=== PATIENT | female | born 1940 | race Caucasian/White ===

== ENCOUNTER 2024-04-17 09:55 | Inpatient (IN) | payer MEDICARE, SELFPAY ==
[2024-04-17] VITALS (8 sets, daily range): BP systolic 133–159; BP diastolic 74–89; PULSE 71–86; RESP 16–18; TEMP 36.6; O2SAT 93–98; BMI 18.4
--- NOTE | 2024-04-17 10:09 | CTR_ITS ---
PROCEDURE INFORMATION: Exam: CT Abdomen And Pelvis Without Contrast Exam date and time: 04/17/2024 11:27 AM Age: 83 years old Clinical indication: Abnormal findings; Abnormal lab test; Abnormal kidney function lab tests; Additional info: Renal failure, R/O obstructive uropathy TECHNIQUE: Imaging protocol: Computed tomography of the abdomen and pelvis without contrast. Radiation optimization: All CT scans at this facility use at least one of these dose optimization techniques: automated exposure control; mA and/or kV adjustment per patient size (includes targeted exams where dose is matched to clinical indication); or iterative reconstruction. COMPARISON: No relevant prior studies available. RADIATION DOSE METRICS: Total DLP (mGy-cm): 302.06 FINDINGS: Lungs: Mild bibasilar scarring and/or atelectasis. Diaphragm: Small to moderate-sized hiatal hernia. Liver: No suspicious hepatic masses. Gallbladder and biliary ducts: The gallbladder is unremarkable. No biliary ductal dilatation. Pancreas: The pancreas is unremarkable. Spleen: The spleen is unremarkable. Adrenal glands: 4.0 cm indeterminate mass at the right adrenal gland. 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 Kidneys and ureters: Kidneys are normal. No hydronephrosis or nephrolithiasis. Stomach and bowel: Nonobstructive bowel gas pattern. Appendix: No evidence of acute appendicitis. Intraperitoneal space: No significant free fluid in the abdomen or pelvis. Vasculature: Moderate calcific atheromatous disease of the abdominal aorta and its major branches. No abdominal aortic aneurysm. Lymph nodes: No distinct pathologically enlarged lymphadenopathy. Urinary bladder: Urinary bladder is within normal limits. Reproductive: Uterus is absent. Bones/joints: Multilevel spondylosis. No acute osseous findings. Soft tissues: Visualized superficial soft tissues are within normal limits. CT/CT abdomen pelvis wo con [id number] IMPRESSION: 1. No evidence of obstructive uropathy. 2. 4.0 cm indeterminate mass at the right adrenal gland. In a patient with no cancer history, consider resection. In a patient with cancer history, consider biopsy or PET-CT. (Reference: Tim) COMMENTS: Consistent with the [employer]'s Incidental Findings Committee white paper (J Am Lauren Radiol 2017): For any incidental adrenal lesion greater than or equal to 1 cm but less than or equal to 4 cm classified in this report as benign, likely benign, or containing fat (including classification as an adenoma or myelolipoma), no follow-up imaging is recommended per consensus recommendations based on imaging criteria. Further lab evaluation could be pursued if warranted based on clinical findings. REFERENCES: Tim KUHN et al. Management of Incidental Adrenal Masses: A White Paper of the ACR Incidental Findings Committee. J Am Lauren Radiol. 2017;14(8):8816-4586.
[2024-04-17 10:43] LABS: Basophils % 0.5 %; Eosinophils # 0.1 10^3/uL (0.0-0.8); Eosinophils % 1.1 %; Hematocrit 38.7 % (36-47); Lymphocytes # 1.6 10^3/uL (0.8-4.8); Lymphocytes % 20.5 %; Mean Corpuscular HGB Conc 32.3 g/dL (30-55); Mean Corpuscular Hemoglobin 28.2 pg (27-33); Mean Corpuscular Volume 87.2 fl (85-98); Mean Platelet Volume 9.1 fL (7.4-10.4); Monocytes # 0.4 10^3/uL (0.2-0.9); Monocytes % 5.4 %; Neutrophils # 5.46 10^3/uL (1.8-7.7); Neutrophils % 72.2 %; Nucleated Red Blood Cells % 0 %; Platelet Count 345 10^3/cmm (157-399); Red Blood Count 4.44 10^6/uL (3.85-5.65); Red Cell Distribution Width 13.9 % (12.1-15.1); White Blood Count 7.56 10^3/uL (3.29-11.43)
--- NOTE | 2024-04-17 10:55 | ED_ITS ---
HPI - General Adult 2 General: Chief complaint: General Medical Stated complaint: Dr. Arroyo sent over--for kidney failure Time Seen by Provider: 04/17/24 10:08 History of Present Illness: 83-year-old female with a history of hyp ertension, anxiety, COPD (quit smoking 2 years ago) who says she was recently started on metformin for newly diagnosed diabetes and since then apparently her renal function has gotten worse. It was checked today and her BUN was 60 and her creatinine was up to 3.8. She has no known renal failure. She says she feels fine. She has no decreased energy. No decreased urine output. No altered mental status. No focal motor deficits. She walks into the emergency room without any difficulty. No fevers. No abdominal pain. No flank pain. Review of Systems 2 Narrative: Constitutional symptoms: Negative except as documented in HPI. Skin symptoms: Negative except as documented in HPI. Eye symptoms: Negative except as documented in HPI. ENMT symptoms: Negative except as documented in HPI. Respiratory symptoms: Negative except as documented in HPI. Cardiovascular symptoms: Negative except as documented in HPI. Gastrointestinal symptoms: Negative except as documented in HPI. Genitourinary symptoms: Negative except as documented in HPI. Musculoskeletal symptoms: Negative except as documented in HPI. Neurologic symptoms: Negative except as documented in HPI. Psychiatric symptoms: Negative except as documented in HPI. Endocrine symptoms: Negative except as documented in HPI. Physical Exam 2 Narrative: EXAM NARRATIVE: General: Alert, no acute distress. Skin: Warm, dry. Head: Normocephalic, atraumatic. Neck: Supple, trachea midline. Eye: Extraocular movements are intact. Ears, nose, mouth and throat: mucosa moist. Cardiovascular: Regular, Normal peripheral perfusion. Respiratory: Lungs are clear to auscultation, respirations are non-labored, breath sounds are equal, Symmetrical chest wall expansion. Gastrointestinal: Soft, Nontender, Non distended Musculoskeletal: Normal ROM, no deformity. Neurological: Alert and oriented, No focal neurological deficit observed. Psychiatric: Cooperative, appropriate mood & affect. Course 2 Vital Signs: Vital signs: Vital Signs Temperature 97.8 F 04/17/24 10:30 Pulse Rate 71 04/17/24 12:29 Respiratory Rate 18 04/17/24 12:29 Blood Pressure 138/87 04/17/24 12:29 Pulse Oximetry 96 04/17/24 12:29 Oxygen Delivery Me thod Room Air 04/17/24 10:30 MDM - General Adult Medical Decision Making Medical decision making: Differential diagnosis including but not limited to and based on the above HPI, review of systems and physical exam: Patient with report of renal failure. Review of lab work paperwork sent from outside shows a BUN of 60 and a creatinine of 3.8. I am repeating lab work and adding a urinalysis. Orders placed to evaluate differential diagnosis based on the above differential, HPI and physical exam Lab Review: Laboratory results were reviewed and interpreted by myself the emergency room physician. Patient does have renal insufficiency. I have no comparison but this appears likely to be subacute. BUN and creatinine are 57 and 4.1. Potassium is not elevated which suggest perhaps not acute but magnesium and phosphorus are normal which would suggest that it has not been all that chronic. Patient does have a significant urinary tract infection I reviewed the patient's medical record. Reexamination: Patient remained stable. No increased work of breathing. No altered mental status. No pain. No focal motor deficits. CT of the abdomen pelvis without contrast: No obvious acute fractures. No obstructive uropathy. There is a an adrenal mass that may require further workup. This was reviewed and interpreted by myself the emergency room physician. I also reviewed the radiology report. Consultation: I spoke with placement officer on-call, Dr. Mulligan, who recommends fluids and antibiotics. Consultation: I spoke with the hospitalist on-call Dr. Douglas who recommends admission. We will place on observation for now. Assessment and plan: Renal failure Urinary tract infection Dehydration -IV Rocephin, 1.5 L normal saline bolus ? Fluids, antibiotics and ultrasound as per nephrology. They will follow -I discussed the patient with the hospitalist on-call who is admitting the patient. - Discussed findings and plan with patient. Answered any questions. - All laboratory values were reviewed and interpreted personally by myself, the ER physician - All imaging was reviewed and interpreted personally by myself, the ER physician. - Evaluation and treatment of this problem were appropriate in the emergency setting -I spent a total of >35 minutes of critical care time managing the patient, independent of any other practitioner. -The time involved in the performance of separately reportable procedures was not counted towards critical care time. Lab Data 04/17/24 10:26 04/17/24 10:26 Radiology Impressions Abdomen/Pelvis CT 04/17/24 10:09 IMPRESSION: 1. No evidence of obstructive uropathy. 2. 4.0 cm indeterminate mass at the right adrenal gland. In a patient with no cancer history, consider resection. In a patient with cancer history, consider biopsy or PET-CT. (Reference: Tim) COMMENTS: Consistent with the [employer]'s Incidental Findings Committee white paper (J Am Lauren Radiol 2017): For any incidental adrenal lesion greater than or equal to 1 cm but less than or equal to 4 cm classified in this report as benign, likely benign, or containing fat (including classification as an adenoma or myelolipoma), no follow-up imaging is recommended per consensus recommendations based on imaging criteria. Further lab evaluation could be pursued if warranted based on clinical findings. REFERENCES: Tim KUHN, et al. Management of Incidental Adrenal Masses: A White Paper of the ACR Incidental Findings Committee. J Am Lauren Radiol. 2017;14(8):4401-3320. Laboratory Results WBC 7.56 10^3/uL (3.29-11.43) 04/17/24 10:26 RBC 4.44 10^6/uL (3.85-5.65) 04/17/24 10:26 Hgb 12.50 g/dL (11.27-16.99) 04/17/24 10:26 Hct 38.7 % (36-47) 04/17/24 10:26 MCV 87.2 fl (85-98) 04/17/24 10:26 MCH 28.2 pg (27-33) 04/17/24 10:26 MCHC 32.3 g/dL (30-55) 04/17/24 10:26 RDW 13.9 % (12.1-15.1) 04/17/24 10:26 Plt Count 345 10^3/cmm (157-399) 04/17/24 10:26 MPV 9.1 fL (7.4-10.4) 04/17/24 10:26 Neut % (Auto) 72.2 % 04/17/24 10:26 Lymph % (Auto) 20.5 % 04/17/24 10:26 [place] % (Auto) 5.4 % 04/17/24 10:26 Eos % (Auto) 1.1 % 04/17/24 10:26 Baso % (Auto) 0.5 % 04/17/24 10:26 Neut # (Auto) 5.46 10^3/uL (1.8-7.7) 04/17/24 10:26 Lymph # (Auto) 1.6 10^3/uL (0.8-4.8) 04/17/24 10:26 [place] # (Auto) 0.4 10^3/uL (0.2-0.9) 04/17/24 10:26 Eos # (Auto) 0.1 10^3/uL (0.0-0.8) 04/17/24 10:26 Baso # (Auto) 0.0 10^3/uL (0.0-0.1) 04/17/24 10:26 Nucleated RBC % (auto) 0 % 04/17/24 10:26 Nucleated RBCs # 0.0 /100WBC 04/17/24 10:26 Sodium 134 mmol/L (136-145) L 04/17/24 10:26 Potassium 4.0 mmol/L (3.5-5.1) 04/17/24 10:26 Chloride 99 mmol/L (98-107) 04/17/24 10:26 Carbon Dioxide 18 mmol/L (22-29) L 04/17/24 10:26 Anion Gap 21.0 (5-19) H 04/17/24 10:26 BUN 57 mg/dL (8-23) H 04/17/24 10:26 Creatinine 4.1 mg/dL (0.5-0.9) H 04/17/24 10:26 GFR Calculation Not Reportable 04/17/24 10:26 Glucose 173 mg/dL (65-115) H 04/17/24 10:26 Calculated Osmolality 298 mOsm/kg (285-295) H 04/17/24 10:26 Calcium 9.5 mg/dL (8.5-10.5) 04/17/24 10:26 Phosphorus 4.2 mg/dL (2.5-4.5) 04/17/24 10:26 Magnesium 2.3 mg/dL (1.7-2.3) 04/17/24 10:26 Total Bilirubin 0.4 mg/dL (0.15-1.2) 04/17/24 10:26 AST 86 U/L (0-32) H 04/17/24 10:26 ALT 122 U/L (0-33) H 04/17/24 10:26 Alkaline Phosphatase 231 U/L (35-105) H 04/17/24 10:26 Total Protein 8.6 g/dL (6.6-8.7) 04/17/24 10:26 Albumin 4.0 g/dL (3.5-5.2) 04/17/24 10:26 Globulin 4.6 g/dL (1.3-4.6) 04/17/24 10:26 Urine Color Yellow (Yellow) 04/17/24 10:54 Urine Appearance Cloudy (CLEAR) A 04/17/24 10:54 Urine pH 6 (5-7) 04/17/24 10:54 Ur Specific [place] 1.010 (1.005-1.030) 04/17/24 10:54 Urine Protein 1+ (Negative) H 04/17/24 10:54 Urine Glucose (UA) 1+ (Normal) H 04/17/24 10:54 Urine Ketones 1+ (Negative) H 04/17/24 10:54 Urine Blood 2+ (Negative) H 04/17/24 10:54 Urine Nitrate Negative (Negative) 04/17/24 10:54 Urine Bilirubin Neg (Negative) 04/17/24 10:54 Urine Urobilinogen Norm mg/dL (Negative) 04/17/24 10:54 Ur Leukocyte Esterase 2+ (Negative) H 04/17/24 10:54 Urine RBC 5-10 /hpf (0-2) H 04/17/24 10:54 Urine WBC >100 /hpf (0-5) 04/17/24 10:54 Ur Squamous Epith Cells 10-15 /hpf (0-5) H 04/17/24 10:54 Ur Transition Epith Cell 0-4 /hpf 04/17/24 10:54 Amorphous Sediment Trace /hpf 04/17/24 10:54 Urine Bacteria 1+ /hpf (NONE) H 04/17/24 10:54 Fine Granular Casts 0-4 /lpf H 04/17/24 10:54 Urine Mucus None /hpf 04/17/24 10:54 Ur Oval Fat Bodies 2+ /hpf 04/17/24 10:54 All radiology interpretation(s) finalized by discharge Discharge Plan Discharge Patient Disposition: Placed in Observation Clinical Impression: Urinary tract infection Renal failure Qualifiers: Renal failure chronicity: unspecified chronicity Qualified Code(s): N19 - Unspecified kidney failure Coding Level of Care Code ED Laundry Worker for Jimbo No
[2024-04-17 11:00] LABS: Alanine Aminotransferase 122 U/L (0-33); Alkaline Phosphatase 231 U/L (35-105); Aspartate Amino Transferase 86 U/L (0-32); Blood Urea Nitrogen 57 mg/dL (8-23); Calcium 9.5 mg/dL (8.5-10.5); Carbon Dioxide 18 mmol/L (22-29); Chloride 99 mmol/L (98-107); Globulin 4.6 g/dL (1.3-4.6); Glucose 173 mg/dL (65-115); Magnesium 2.3 mg/dL (1.7-2.3); Osmolality Calculated 298 mOsm/kg (285-295); Phosphorus 4.2 mg/dL (2.5-4.5); Sodium 134 mmol/L (136-145); Total Bilirubin 0.4 mg/dL (0.15-1.2); Total Protein 8.6 g/dL (6.6-8.7)
[2024-04-17 11:25] LABS: Add Urine Microscopic? YES; Bilirubin Urine Neg (Negative); Blood Urine 2+ (Negative); Glucose Urine UA 1+ (Normal); Ketones Urine 1+ (Negative); Leukocyte Esterase Urine 2+ (Negative); Nitrate Urine Negative (Negative); Protein Urine 1+ (Negative); Urine Appearance Cloudy (CLEAR); Urine Color Yellow (Yellow); Urobilinogen Urine Norm (Negative); pH Urine 6 (5-7)
[2024-04-17 11:30] LABS: WBC Urine >100 /hpf (0-5)
[2024-04-17 11:31] LABS: Add Urine Culture? Yes; Amorphous Sediment Urine TRACE /hpf; Bacteria Urine 1+ /hpf; Fine Granular Casts Urine 0-4 /lpf; Oval Fat Bodies Urine 2+ /hpf; Transitional Epi Cells Urine 0-4 /hpf
--- NOTE | 2024-04-17 12:29 | PM.HP ---
Providers/Chief Complaint Admitting Physician: Elodia Douglas MD Primary Care Provider: Isha Aguila Chief Complaint: Dr. Arroyo sent over--for kidney failure History of Present Illness Ai Jackson is a 83 year old female who presented to the emergency room due to abnormal laboratory studies. She was seen yesterday at her primary care provider's office for follow-up check. Some time recently she had been started on metformin due to elevation in blood sugar. Does not have a formal diagnosis of diabetes but laboratory studies have been noted to be abnormal. She did take metformin as prescribed initially and subsequently developed diarrhea. She then quit taking the metformin due to the frequency of diarrhea which was unbelievable . She stopped taking metformin more than a week ago. Blood work was rechecked yesterday and creatinine was noted to be 3.8. Mrs. Jackson has a history of lung cancer, specific type unknown but she is being managed with immunotherapy and follows with Dr. Melara in [place]. Original diagnosis was 3 years ago. The last time that she had lab work done they told her that her kidneys were not functioning completely normal but she nor family present have the exact numerical values. Lab work done at the clinic yesterday was significantly abnormal however and Ms. Jackson was sent to the emergency room. Here she had BUN and creatinine of 57/4.1. Potassium was 4.0. Of note blood sugars were 173. In talking with her she does have urinary frequency and incontinence, urgency. She denies any flank pain. She has not had any fevers, nausea, abdominal pain. Again she only had diarrhea after taking metformin. Denies dysuria. Urinalysis came back with indications of infection. Given apparent new renal failure and UTI she received Rocephin and some IV fluids and request was made for admission. CT imaging did not show any evidence of obstructive uropathy though an adrenal mass was noted. In talking with family they do not believe that this is a new finding but do not have prior details. Nephrology requested a renal ultrasound and this did actually show bilateral hydronephrosis and a distended bladder suggesting an obstructive uropathy. Home medications include lorazepam, amlodipine and as needed albuterol and the recently discontinued metformin. History is obtained from Mrs. Jackson who lives alone as well as family member present in the room. Review of Systems General: Reports: Other (ROS as per HPI or as otherwise noted here) Const: Reports: change in appetite and change in weight (Weight loss of maybe 4 pounds); Denies: fever(s) Card: Denies: chest pain or edema Resp: Reports: dyspnea, productive cough (Phlegm) and other (Never required oxygen); Denies: pain on inspiration or hemoptysis : Denies: hematuria Psych: Reports: anxiety Endo: Denies: polydipsia Medications/Allergies Home Medications Medication Instructions Recorded Confirmed Last Taken Type albuterol sulfate 90 mcg/actuation 2 puff inhalation QID PRN Wheezing 04/17/24 04/17/24 Unknown History aerosol inhaler amlodipine 10 mg tablet 10 mg PO DAILY 04/17/24 04/17/24 04/17/24 History lorazepam 0.5 mg tablet 0.5 mg PO BID PRN SEVERE AGITATION 04/17/24 04/17/24 04/17/24 History Allergies Allergy/AdvReac Type Severity Reaction Status Date / Time No Known Allergies Allergy Verified 04/17/24 10:38 PFSH Acute PFSH: Medical History (Updated 04/17/24 @ 16:41 by Elodia Douglas MD) Adrenal mass Cystocele Anxiety Hypertension COPD (chronic obstructive pulmonary disease) History of lung cancer Type unknown, follows with Dr Cano in [place], on immunotherapy Surgical History (Updated 04/17/24 @ 16:26 by Elodia Douglas MD) History of hysterectomy Social History (Updated 04/17/24 @ 16:26 by Elodia Douglas MD) Smoking and tobacco/nicotine status: former use of tobacco/nicotine Lives independently: Yes Household members: none and other Details: family checks on her Vitals/I&O/Wt Last Vital Signs Temp 97.8 F 04/17/24 10:30 Pulse 83 04/17/24 11:38 Resp 16 04/17/24 11:38 BP 150/89 04/17/24 11:38 Pulse Ox 98 04/17/24 11:38 O2 Del Method Room Air 04/17/24 10:30 Weight last 48 hrs Weight 50.349 kg Physical Exam Narrative: Patient is awake and alert. Able to provide history. Evidence of chronic sun exposure most notable on the face. She is quite spry. Normocephalic. Extraocular movements are intact. Lungs with occasional wheeze and nonproductive cough during examination noted but no accessory muscle use. Cardiovascular exam reveals a regular rate and rhythm. Abdomen is soft, nontender, no flank pain. Extremities no pitting edema. No abnormal movements. Data 04/17/24 10:26 04/17/24 10:26 Other Labs: Radiology Impressions Abdomen/Pelvis CT 04/17/24 10:09 IMPRESSION: 1. No evidence of obstructive uropathy. 2. 4.0 cm indeterminate mass at the right adrenal gland. In a patient with no cancer history, consider resection. In a patient with cancer history, consider biopsy or PET-CT. (Reference: Tim) COMMENTS: Consistent with the [employer]'s Incidental Findings Committee white paper (J Am Lauren Radiol 2017): For any incidental adrenal lesion greater than or equal to 1 cm but less than or equal to 4 cm classified in this report as benign, likely benign, or containing fat (including classification as an adenoma or myelolipoma), no follow-up imaging is recommended per consensus recommendations based on imaging criteria. Further lab evaluation could be pursued if warranted based on clinical findings. REFERENCES: Tim KUHN, et al. Management of Incidental Adrenal Masses: A White Paper of the ACR Incidental Findings Committee. J Am Lauren Radiol. 2017;14(8):9797-2129. Renal Ultrasound 04/17/24 12:58 IMPRESSION: 1. Bilateral hydronephrosis and moderate distention of urinary bladder. The possibility of bladder outlet obstruction should be considered. 2. The kidneys are otherwise well preserved. No solid or cystic renal mass. No obvious shadowing calculi noted. Laboratory Results WBC 7.56 10^3/uL (3.29-11.43) 04/17/24 10:26 RBC 4.44 10^6/uL (3.85-5.65) 04/17/24 10:26 Hgb 12.50 g/dL (11.27-16.99) 04/17/24 10:26 Hct 38.7 % (36-47) 04/17/24 10:26 MCV 87.2 fl (85-98) 04/17/24 10:26 MCH 28.2 pg (27-33) 04/17/24 10: MCHC 32.3 g/dL (30-55) 04/17/24 10:26 RDW 13.9 % (12.1-15.1) 04/17/24 10:26 Plt Count 345 10^3/cmm (157-399) 04/17/24 10:26 MPV 9.1 fL (7.4-10.4) 04/17/24 10:26 Neut % (Auto) 72.2 % 04/17/24 10:26 Lymph % (Auto) 20.5 % 04/17/24 10:26 [place] % (Auto) 5.4 % 04/17/24 10:26 Eos % (Auto) 1.1 % 04/17/24 10:26 Baso % (Auto) 0.5 % 04/17/24 10:26 Neut # (Auto) 5.46 10^3/uL (1.8-7.7) 04/17/24 10:26 Lymph # (Auto) 1.6 10^3/uL (0.8-4.8) 04/17/24 10:26 [place] # (Auto) 0.4 10^3/uL (0.2-0.9) 04/17/24 10:26 Eos # (Auto) 0.1 10^3/uL (0.0-0.8) 04/17/24 10:26 Baso # (Auto) 0.0 10^3/uL (0.0-0.1) 04/17/24 10:26 Nucleated RBC % (auto) 0 % 04/17/24 10:26 Nucleated RBCs # 0.0 /100WBC 04/17/24 10:26 Sodium 134 mmol/L (136-145) L 04/17/24 10:26 Potassium 4.0 mmol/L (3.5-5.1) 04/17/24 10:26 Chloride 99 mmol/L (98-107) 04/17/24 10:26 Carbon Dioxide 18 mmol/L (22-29) L 04/17/24 10:26 Anion Gap 21.0 (5-19) H 04/17/24 10:26 BUN 57 mg/dL (8-23) H 04/17/24 10:26 Creatinine 4.1 mg/dL (0.5-0.9) H 04/17/24 10:26 GFR Calculation Not Reportable 04/17/24 10:26 Glucose 173 mg/dL (65-115) H 04/17/24 10:26 Calculated Osmolality 298 mOsm/kg (285-295) H 04/17/24 10:26 Calcium 9.5 mg/dL (8.5-10.5) 04/17/24 10:26 Phosphorus 4.2 mg/dL (2.5-4.5) 04/17/24 10:26 Magnesium 2.3 mg/dL (1.7-2.3) 04/17/24 10:26 Total Bilirubin 0.4 mg/dL (0.15-1.2) 04/17/24 10:26 AST 86 U/L (0-32) H 04/17/24 10:26 ALT 122 U/L (0-33) H 04/17/24 10:26 Alkaline Phosphatase 231 U/L (35-105) H 04/17/24 10:26 Total Protein 8.6 g/dL (6.6-8.7) 04/17/24 10: Albumin 4.0 g/dL (3.5-5.2) 04/17/24 10: Globulin 4.6 g/dL (1.3-4.6) 04/17/24 10:26 Urine Color Yellow (Yellow) 04/17/24 10:54 Urine Appearance Cloudy (CLEAR) A 04/17/24 10:54 Urine pH 6 (5-7) 04/17/24 10:54 Ur Specific [place] 1.010 (1.005-1.030) 04/17/24 10:54 Urine Protein 1+ (Negative) H 04/17/24 10:54 Urine Glucose (UA) 1+ (Normal) H 04/17/24 10:54 Urine Ketones 1+ (Negative) H 04/17/24 10:54 Urine Blood 2+ (Negative) H 04/17/24 10:54 Urine Nitrate Negative (Negative) 04/17/24 10:54 Urine Bilirubin Neg (Negative) 04/17/24 10:54 Urine Urobilinogen Norm mg/dL (Negative) 04/17/24 10:54 Ur Leukocyte Esterase 2+ (Negative) H 04/17/24 10:54 Urine RBC 5-10 /hpf (0-2) H 04/17/24 10:54 Urine WBC >100 /hpf (0-5) 04/17/24 10:54 Ur Squamous Epith Cells 10-15 /hpf (0-5) H 04/17/24 10:54 Ur Transition Epith Cell 0-4 /hpf 04/17/24 10:54 Amorphous Sediment Trace /hpf 04/17/24 10:54 Urine Bacteria 1+ /hpf (NONE) H 04/17/24 10:54 Fine Granular Casts 0-4 /lpf H 04/17/24 10:54 Urine Mucus None /hpf 04/17/24 10:54 Ur Oval Fat Bodies 2+ /hpf 04/17/24 10:54 A&P Assessment and plan (1) Renal failure: Currently looks to be postobstructive based on hydronephrosis and bladder dilatation along with urinary tract infection. She describes symptoms of what sounds like overflow incontinence for some time. Potential component of prerenal given GI losses when on metformin but quit taking it more than a week ago and the diarrhea has since resolved. We do have indication that her last labs done through oncology in [place] started to show some decline in overall renal function. Does have a little bit of a metabolic acidosis associated but potassium is normal as is phosphorus. (2) Bilateral hydronephrosis: Noted on renal ultrasound (3) Urinary obstruction: Contributing to above and below (4) Urinary tract infection: Present on admission, organism unknown (5) Cystocele: Present since she had hysterectomy many years ago. Not currently extruding. Never had surgical intervention and did not tolerate pessary. (6) Elevated blood sugar: Recent new finding for which she was started on metformin. Does not as of yet have a diagnosis of diabetes. Has not been on any form of steroid treatment that she is aware of that might account for hyperglycemia. (7) History of lung cancer: Followed with Dr. Melara in [place] and is currently on immunotherapy which she gets every 4 weeks IV. Specific type of lung cancer and treatment not known but she is in year 3 of management. (8) COPD (chronic obstructive pulmonary disease): On as needed albuterol, has a bit of a cough currently but respiratory symptoms otherwise not changed from baseline (9) Hypertension: Primary hypertension, chronically on amlodipine (10) Adrenal mass: 4 cm on today's imaging, likely not new according to family though they do not have details, discussed this finding with patient and them (11) Anxiety: Chronically on as needed lorazepam which she will often take twice a day Plan Mild elevation in transaminases and alkaline phosphatase, may be related to Immunotherapy or other medications, does not appear volume overloaded nor does she complain of acute GI symptoms, impact from cancer a consideration though nothing obvious noted on noncontrasted imaging today Observation admission for now Continue IV fluids Will place Cox catheter Discussed with patient and her family that she very well may end up needing to go home with Cox catheter with outpatient follow-up to urology depending on clinical course We also discussed possibility of adding an alpha-brady such as tamsulosin but at this point in time we will hold off on initiating given potential risk of medication such as dizziness or syncope Monitor urine output closely Nephrology has been consulted to see Continue Rocephin Follow-up pending urine cultures Monitor for need to address cystocele Consistent carbohydrate diet for elevation in blood sugar, recommend follow-up with primary care provider. will check blood sugars while here and give insulin if needed Asked patient to make sure her oncologist knows about urine infection and acute renal failure before next dose of immunotherapy, will try to send to Dr. Melara Recommend follow-up with primary care provider/Dr. Watson regarding adrenal mass given that she likely has had PET scans, other staging examinations previously that this adrenal mass could be compared to Continue albuterol if needed for breathing Continue amlodipine for blood pressure Continue lorazepam for anxiety VTE prophylaxis: subcu heparin GI Prophylaxis: not currently indicated Antibiotics: Rocephin Pending studies: urine culture Telemetry: not currently indicated Cox: ordered secondary to will appears to be obstructive uropathy and acute renal failure Line(s): peripheral IVs Disposition plan: Home with outpatient follow up to primary care provider, potentially urology and/or gynecology and her oncologist Dr. Melara anticipated. Currently expect she will likely go home with Cox catheter and will need instruction on how to use this and care for it at home. Also anticipate oral antibiotics at discharge and follow-up laboratory studies given renal dysfunction. Code Status: Full Code Supportive care otherwise Findings, concerns and plans were discussed with patient and Family in the room and they were given an opportunity to ask questions Attestations Medical Necessity Statement*: Anticipated stay less than two midnights in this 88-year-old who was incidentally found to have evidence of renal failure as described. Also has urinary tract infection. Currently renal failure appears to be postobstructive in nature based on hydronephrosis and distended bladder and symptoms describing incontinence particularly in someone with a known cystocele that has not been repaired. It is not actively protruding at the moment. May be a component of prerenal from GI losses related to recent trial of metformin but would have expected that to have resolved or be closer to resolving by now. She does not feel acutely ill. Currently on IV fluids and IV antibiotics with plan to follow-up laboratory studies and clinical response to treatment before determining further plans of care after tomorrow. Diagnoses Renal failure N19 Bilateral hydronephrosis N13.30 Urinary obstruction N13.9 Urinary tract infection N39.0 Cystocele Elevated blood sugar R73.9 History of lung cancer Z85.118 COPD (chronic obstructive pulmonary disease) J44.9 Hypertension I10 Adrenal mass E27.8 Anxiety F41.9
[2024-04-17] MEDS: cefTRIAXone 1,000 MG in sodium chloride 0.9% (plus) 50 ML 100 MG IV (12:35)
[2024-04-17] MEDS: sodium chloride 0.9% 500 ML 999 ML IV (12:37)
[2024-04-17] MEDS: sodium chloride 0.9% 1,000 ML 999 ML IV (12:39)
--- NOTE | 2024-04-17 12:58 | US_ITS ---
WS: [id number] Exam: US renal BI* [id number] Date/Time of Exam: 04/17/2024 1:24 PM Reason For Exam: renal failure There is moderate LEFT hydronephrosis and mild to moderate RIGHT hydronephrosis. There is also disten tion of the urinary bladder. Bladder outlet obstruction should be considered. No solid or cystic bonilla l mass was noted. The RIGHT kidney measures 11 x 4.6 x 5.3 cm. The LEFT kidney measures 10.9 x 5.2 x 4.6 cm. The renal cortex measures about 2.2 cm bilaterally. US/US renal BI* [id number] IMPRESSION: 1. Bilateral hydronephrosis and moderate distention of urinary bladder. The pos sibility of bladder outlet obstruction should be considered. 2. The kidneys are otherwise well preserved. No solid or cystic renal mass. No obvious shadowing calculi noted.
--- NOTE | 2024-04-17 13:17 | PC.PHAR ---
PT HAS ESCITALOPRAM 5MG ONCE DAILY-LAST FILL 90D-PT STOPPED TAKING SO I DID NOT ADD TO CURRENT MED LIST
[2024-04-17] MEDS: heparin 5,000 unit/mL INJ 1 mL 5000 UNIT SUBCUT (16:23)
[2024-04-17] MEDS: sodium chloride 0.9% 1,000 ML 100 ML IV (16:23)
[2024-04-17 16:41] LABS: Glucose Point of Care 182 mg/dL (70-110)
[2024-04-17 20:37] LABS: Glucose Point of Care 264 mg/dL (70-110)
--- NOTE | 2024-04-17 21:02 | PM.CONSULT ---
Providers/Reason For Consult Consulting Physician/Specialty*: fide/Nephrology Reason for Consult*: JOE Attending Physician: Elodia Douglas MD History of Present Illness History of Present Illness Ai Jackson is a 83 year old female Patient is 84-year-old female with past medical history of COPD, hypertension, history of right renal mass, history of lung cancer was sent to the emergency department due to abnormal labs. Patient was recently started on metformin due to diarrhea. New diagnosis of diabetes. But patient had some GI symptoms and had stopped metformin about a week ago. Lab data in the PCP office showed creatinine of 3.8. Renal ultrasound has showed bilateral hydronephrosis and distended bladder. Creatinine was 4.1. Cox catheter was placed. Review of Systems Narrative: Other review of systems negative Medications/Allergies Home Medications Medication Instructions Recorded Confirmed Last Taken Type albuterol sulfate 90 mcg/actuation 2 puff inhalation QID PRN Wheezing 04/17/24 04/17/24 Unknown History aerosol inhaler amlodipine 10 mg tablet 10 mg PO DAILY 04/17/24 04/17/24 04/17/24 History lorazepam 0.5 mg tablet 0.5 mg PO BID PRN SEVERE AGITATION 04/17/24 04/17/24 04/17/24 History Allergies Allergy/AdvReac Type Severity Reaction Status Date / Time No Known Allergies Allergy Verified 04/17/24 10:38 Current Medications Generic Name Dose Route Start Last Admin Trade Name Freq PRN Reason Stop Dose Admin Heparin Sodium (Porcine) 5,000 unit 04/17/24 16:00 04/17/24 16:23 Heparin 5,000 Unit/Ml Inj 1 Ml SUBCUT 5,000 unit Q12H DARIA Administration Sodium Chloride 1,000 mls @ 100 mls/hr 04/17/24 16:00 04/17/24 16:23 Sodium Chloride 0.9% IV 100 mls/hr .Q10H DARIA Administration Insulin Human Lispro 0 unit 04/17/24 18:00 04/17/24 18:06 Insulin Lispro 100 Unit/1 Ml SUBCUT Not Given TIDWM DARIA Protocol PFSH Acute PFSH: Medical History (Updated 04/18/24 @ 05:28 by Alyssa Mulligan MD) Adrenal mass Cystocele Anxiety Hypertension COPD (chronic obstructive pulmonary disease) History of lung cancer Type unknown, follows with Dr Cano in [place], on immunotherapy Surgical History (Updated 04/17/24 @ 16:26 by Elodia Douglas MD) History of hysterectomy Social History (Updated 04/17/24 @ 16:26 by Elodia Douglas MD) Smoking and tobacco/nicotine status: former use of tobacco/nicotine Lives independently: Yes Household members: none and other Details: family checks on her Vitals/I&O/Wt Last Vital Signs Temp 97.8 F 04/17/24 19:38 Pulse 85 04/17/24 19:38 Resp 16 04/17/24 19:38 BP 133/75 04/17/24 19:38 Pulse Ox 93 04/17/24 19:38 O2 Del Method Room Air 04/17/24 17:23 04/17/24 04/17/24 04/17/24 06:59 14:59 22:59 Intake Total 1550 / 1550 Balance 1550 / 1550 Weight last 48 hrs Weight 50.349 kg Physical Exam Narrative: Awake, alert, no distress HEENT S1-S2 regular rate and rhythm per report Lungs clear per report No pedal edema Urinary Catheter Management: Cox: Cath Placed During This Visit: yes Reason for Continuing Indwelling Catheter: Other Urinary Catheter Date of Insertion: 04/17/24 Urinary Catheter Time of Insertion: 16:41 Data 04/17/24 10:26 04/17/24 21:20 A&P Assessment and plan (1) JOE (acute kidney injury): 1. Acute kidney injury: Baseline creatinine not available, creatinine on presentation was 4.1, in the setting of obstructive uropathy and prerenal state. Continue IV fluids and continue to monitor, Cox catheter placed. Avoid nephrotoxic agents and IV contrast studies. No indication for dialysis. Will check serologies. 2. Metabolic acidosis: Mild, monitor for now 3. History of hypertension, on amlodipine, can resume 4. History of diabetes, metformin on hold Patient evaluated recent admission. Time spent 40 minutes. Coding Level of Care Code Acute Code for [facility] Fwd Diagnoses JOE (acute kidney injury) N17.9
[2024-04-17] MEDS: insulin lispro 100 unit/1 mL SUBCUT (21:31)
[2024-04-17 21:47] LABS: Anion Gap 17.9 (5-19); Blood Urea Nitrogen 55 mg/dL (8-23); Calcium 8.6 mg/dL (8.5-10.5); Carbon Dioxide 17 mmol/L (22-29); Chloride 106 mmol/L (98-107); Creatinine Clr Calc Pharmacy 9.7915; Glucose 237 mg/dL (65-115); Osmolality Calculated 307 mOsm/kg (285-295); Potassium 3.9 mmol/L (3.5-5.1); Sodium 137 mmol/L (136-145)
[2024-04-18] VITALS (10 sets, daily range): BP systolic 134–145; BP diastolic 66–76; PULSE 72–89; RESP 16–18; TEMP 36.6–37.1; O2SAT 91–96
[2024-04-18] MEDS: sodium chloride 0.9% 1,000 ML 100 ML IV (02:26)
[2024-04-18] MEDS: heparin 5,000 unit/mL INJ 1 mL 5000 UNIT SUBCUT ×2 (05:12→17:50)
[2024-04-18 05:51] LABS: Basophils % 0.5 %; Eosinophils % 0.6 %; Lymphocytes # 1.5 10^3/uL (0.8-4.8); Mean Corpuscular HGB Conc 32.4 g/dL (30-55); Mean Corpuscular Hemoglobin 27.7 pg (27-33); Mean Corpuscular Volume 85.6 fl (85-98); Mean Platelet Volume 9.3 fL (7.4-10.4); Monocytes # 0.4 10^3/uL (0.2-0.9); Monocytes % 7.1 %; Neutrophils # 4.22 10^3/uL (1.8-7.7); Neutrophils % 67.6 %; Nucleated Red Blood Cells % 0 %; Platelet Count 317 10^3/cmm (157-399); Red Blood Count 3.97 10^6/uL (3.85-5.65); Red Cell Distribution Width 13.9 % (12.1-15.1); White Blood Count 6.24 10^3/uL (3.29-11.43)
[2024-04-18 06:17] LABS: Alanine Aminotransferase 93 U/L (0-33); Albumin Level 3.5 g/dL (3.5-5.2); Alkaline Phosphatase 193 U/L (35-105); Anion Gap 17.6 (5-19); Aspartate Amino Transferase 59 U/L (0-32); Blood Urea Nitrogen 51 mg/dL (8-23); Calcium 8.6 mg/dL (8.5-10.5); Carbon Dioxide 16 mmol/L (22-29); Chloride 109 mmol/L (98-107); Creatinine Clr Calc Pharmacy 10.4317; Globulin 3.7 g/dL (1.3-4.6); Glucose 91 mg/dL (65-115); Osmolality Calculated 301 mOsm/kg (285-295); Phosphorus 4.2 mg/dL (2.5-4.5); Potassium 3.6 mmol/L (3.5-5.1); Sodium 139 mmol/L (136-145); Total Bilirubin 0.3 mg/dL (0.15-1.2); Total Protein 7.2 g/dL (6.6-8.7)
[2024-04-18 06:31] LABS: Glucose Point of Care 90 mg/dL (70-110)
[2024-04-18] MEDS: amlodipine 10 mg Tablet PO (08:36)
[2024-04-18] MEDS: LORazepam 0.5 mg Tablet PO ×2 (08:37→22:26)
--- NOTE | 2024-04-18 09:05 | P.PN_ITS ---
Subjective 2 Subjective: doing well Medications: Reviewed: Yes Vitals/I&O/Wt Last Vital Signs Temp 98.4 F 04/18/24 07:01 Pulse 80 04/18/24 08:15 Resp 16 04/18/24 08:15 BP 135/76 04/18/24 07:01 Pulse Ox 93 04/18/24 08:15 O2 Del Method Room Air 04/18/24 08:15 04/17/24 04/18/24 04/18/24 22:59 06:59 14:59 Intake Total 2029 1480 / 3510 Output Total 1650 / 1650 Balance 2029 -170 / 1860 Weight last 48 hrs Weight 55.423 kg Weight 50.349 kg Physical Exam 2 Narrative: Awake, alert, no distress HEENT S1-S2 regular rate and rhythm per report Lungs clear per report No pedal edema Urinary Catheter Management: Cox: Cath Placed During This Visit: yes Reason for Continuing Indwelling Catheter: Other Urinary Catheter Date of Insertion: 04/17/24 Urinary Catheter Time of Insertion: 16:41 Data 04/18/24 05:17 04/18/24 05:17 A&P Assessment and plan (1) JOE (acute kidney injury): 1. Acute kidney injury: Baseline creatinine not available, creatinine on presentation was 4.1, in the setting of obstructive uropathy and prerenal state. Continue IV fluids and continue to monitor, Cox catheter placed. Avoid nephrotoxic agents and IV contrast studies. No indication for dialysis. Will check serologies. - Cr better today , switch IVFs to bicarbonate drip 2. Metabolic acidosis: 3. History of hypertension, on amlodipine, 4. History of diabetes, metformin dcd , Patient evaluated recent admission. Time spent 40 minutes. Attestations 2 Medical Necessity Statement*: per medicine Coding Level of Care Code Acute Code for [facility] Fwd Diagnoses JOE (acute kidney injury) N17.9
[2024-04-18 09:31] LABS: Creatine Phosphokinase 53 U/L (26-192)
[2024-04-18 11:04] LABS: Estmated Average Glucose 183
[2024-04-18 11:19] LABS: Iron 82 ug/dL (37-145); Percent Saturation 30.4 % (20-50); Thyroid Stimulating Hormone 1.52 uIU/mL (0.27-4.20); Total Iron Binding Capacity 269 mcg/dl; Unsaturated Iron Binding 187 ug/dL (112-347); Vitamin B12 1189 pg/mL (232-1245)
[2024-04-18 11:36] LABS: Glucose Point of Care 197 mg/dL (70-110)
[2024-04-18] MEDS: sodium bicarbonate 150 MEQ in dextrose 5% 1,000 ML 100 MEQ IV ×2 (11:47→22:23)
[2024-04-18] MEDS: cefTRIAXone 1,000 MG in sodium chloride 0.9% (plus) 50 ML 100 MG IV (11:47)
[2024-04-18] MEDS: insulin lispro 100 unit/1 mL SUBCUT ×3 (11:48→22:22)
[2024-04-18] MEDS: levalbuterol 0.63 mg/3 mL Neb 0.630000000000000004 MG INHALATION ×2 (13:38→20:09)
[2024-04-18] MEDS: ipratropium 0.5 mg/2.5 mL Neb INHALATION ×2 (13:38→20:09)
--- NOTE | 2024-04-18 14:13 | P.PN_ITS ---
Subjective 2 Subjective: H&P and labs appreciated. Seen with family at bedside. Patient denies any nausea, vomiting, headache. Does complain of occasional shortness of breath for which she has been using her own inhaler. Has remained hemodynamically stable and afebrile on room air. Denies any abdominal pain. Vitals/I&O/Wt Last Vital Signs Temp 98.4 F 04/18/24 07:01 Pulse 78 04/18/24 13:40 Resp 16 04/18/24 13:40 BP 139/72 04/18/24 11:13 Pulse Ox 95 04/18/24 13:40 O2 Del Method Room Air 04/18/24 13:40 04/17/24 04/18/24 04/18/24 22:59 06:59 14:59 Intake Total 480 / 2030 1480 / 3510 1451.667 / 1451.667 Output Total 1650 / 1650 400 / 400 Balance 480 / 2029 -170 / 1860 1051.667 / 1051.667 Weight last 48 hrs Weight 55.423 kg Weight 50.349 kg Physical Exam 2 Narrative: General: No acute distress, AO x3, dehydrated HEENT: PERRLA, pupils bilaterally equal and reactive Chest: Normal vesicular breath sounds, no added sounds, equal good air entry bilaterally CVS: S1-S2 regular, no murmurs, no tachycardia, no gallops, no rubs Abdomen: Soft, nontender, no organomegaly, bowel sounds present Neuro: No focal deficits, no facial deformity, AO x3, power 5/5 in all limbs Urinary Catheter Management: Cox: Cath Placed During This Visit: yes Reason for Continuing Indwelling Catheter: Other Urinary Catheter Date of Insertion: 04/17/24 Urinary Catheter Time of Insertion: 16:41 Data 04/18/24 05:17 04/18/24 05:17 Micro: Microbiology 04/17/24 10:54 Urine Culture - Preliminary Urine,Clean Catch A&P Assessment and plan (1) Renal failure: Most likely in setting of dehydration with bladder outlet obstruction leading to bilateral hydronephrosis. Concern for prerenal etiology. Medical reconciliation done for nephrotoxic drugs. Creatinine down to 3.7. Nephrology on board. Switch to D5W with sodium bicarbonate at 100 cc/h today as per nephrology recommendations. Repeat BMP in evening. Monitor electrolytes. Continue with Cox catheterization. Will repeat CT abdomen pelvis the next 24 to 48 hours. (2) Bilateral hydronephrosis: Noted on renal ultrasound. Somehow not seen on CT abdomen pelvis done yesterday. In setting of bladder outlet obstruction. Continue to monitor. Cox catheterization. Will need a repeat imaging prior to discharge. Will need to follow-up with urology as an outpatient. Start on Flomax 0.4 mg daily. (3) Urinary obstruction: (4) Urinary tract infection: Denies any dysuria. Started on ceftriaxone on admission. Follow-up urine culture. De-escalate as per culture results. Blood culture not sent on admission. If spikes a fever will send a blood culture. (5) Cystocele: (6) Elevated blood sugar: No formal diagnosis of type 2 diabetes mellitus. A1c checked in more than 8. Could definitely have symptoms concerning for diabetic nephropathy. Insulin sliding scale before meals and at bedtime. Most likely will need to be discharged on oral hypoglycemics versus insulin depending on creatinine clearance. (7) History of lung cancer: Followed with Dr. Melara in [place] and is currently on immunotherapy which she gets every 4 weeks IV. Specific type of lung cancer and treatment not known but she is in year 3 of management. Start on Pulmicort twice daily and DuoNebs every 6 hours. Oxygen supplementation keeping saturation 90%. (8) COPD (chronic obstructive pulmonary disease): On as needed albuterol, has a bit of a cough currently but respiratory symptoms otherwise not changed from baseline. No exacerbation noted. (9) Hypertension: Primary hypertension, chronically on amlodipine Goal blood pressure less than 140/90 mmHg. 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 VTE prophylaxis: subcu heparin GI Prophylaxis: Famotidine for PUD prophylaxis Cox: ordered secondary to will appears to be obstructive uropathy and acute renal failure CODE STATUS: Discussed in detail with the patient with family at bedside. Patient would not want to be on life support like ventilator but is okay with chest compressions. CODE STATUS changed to limited resuscitation Disposition plan: Home with outpatient follow up to primary care provider, potentially urology and/or gynecology and her oncologist Dr. Melara anticipated. Currently expect she will likely go home with Cox catheter and will need instruction on how to use this and care for it at home. Also anticipate oral antibiotics at discharge and follow-up laboratory studies given renal dysfunction. Attestations 2 Medical Necessity Statement*: Requires further hospitalization for management of acute renal failure in setting of post obstructive uropathy in setting of bladder outlet obstruction, new type 2 diabetes mellitus Coding Level of Care Code Acute Code for [facility] Fwd Diagnoses Renal failure N19 Bilateral hydronephrosis N13.30 Urinary obstruction N13.9 Urinary tract infection N39.0 Cystocele Elevated blood sugar R73.9 History of lung cancer Z85.118 COPD (chronic obstructive pulmonary disease) J44.9 Hypertension I10 Adrenal mass E27.8 Anxiety F41.9
[2024-04-18 14:55] LABS: Potassium, Radom Urine 28 mmol/L; Urine Creatinine 68 mg/dL (28-217); Urine Random Chloride 45 mmol/L; Urine Random Sodium 55 mmol/L
[2024-04-18 16:30] LABS: Glucose Point of Care 181 mg/dL (70-110)
[2024-04-18] MEDS: famotidine 20 mg Tablet PO (17:50)
[2024-04-18] MEDS: budesonide 0.5 mg/2 mL Neb INHALATION (20:09)
[2024-04-18 21:01] LABS: Glucose Point of Care 155 mg/dL (70-110)
[2024-04-19] VITALS (12 sets, daily range): BP systolic 126–142; BP diastolic 69–81; PULSE 75–98; RESP 16–21; TEMP 36.5–37.1; O2SAT 90–98; BMI 20.3
--- NOTE | 2024-04-19 02:14 | PC.RESP ---
Pt refused tx. Wanted to sleep.
[2024-04-19] MEDS: heparin 5,000 unit/mL INJ 1 mL 5000 UNIT SUBCUT ×2 (04:19→17:17)
[2024-04-19 06:25] LABS: Glucose Point of Care 157 mg/dL (70-110)
[2024-04-19 06:28] LABS: Basophils % 0.5 %; Eosinophils # 0.1 10^3/uL (0.0-0.8); Eosinophils % 1.3 %; Hematocrit 29.8 % (36-47); Lymphocytes # 1.7 10^3/uL (0.8-4.8); Lymphocytes % 27.2 %; Mean Corpuscular HGB Conc 33.6 g/dL (30-55); Mean Corpuscular Hemoglobin 28.2 pg (27-33); Mean Corpuscular Volume 83.9 fl (85-98); Mean Platelet Volume 9.3 fL (7.4-10.4); Monocytes # 0.5 10^3/uL (0.2-0.9); Monocytes % 8.2 %; Neutrophils # 3.79 10^3/uL (1.8-7.7); Neutrophils % 62.5 %; Nucleated Red Blood Cells % 0 %; Platelet Count 293 10^3/cmm (157-399); Red Blood Count 3.55 10^6/uL (3.85-5.65); Red Cell Distribution Width 14.1 % (12.1-15.1); White Blood Count 6.07 10^3/uL (3.29-11.43)
[2024-04-19 06:46] LABS: Alanine Aminotransferase 79 U/L (0-33); Albumin Level 3.2 g/dL (3.5-5.2); Alkaline Phosphatase 192 U/L (35-105); Anion Gap 15.2 (5-19); Aspartate Amino Transferase 50 U/L (0-32); Blood Urea Nitrogen 40 mg/dL (8-23); Calcium 7.8 mg/dL (8.5-10.5); Carbon Dioxide 24 mmol/L (22-29); Chloride 105 mmol/L (98-107); Creatinine Clr Calc Pharmacy 11.3499; Globulin 3.7 g/dL (1.3-4.6); Glucose 145 mg/dL (65-115); Osmolality Calculated 304 mOsm/kg (285-295); Potassium 3.2 mmol/L (3.5-5.1); Sodium 141 mmol/L (136-145); Total Bilirubin 0.3 mg/dL (0.15-1.2); Total Protein 6.9 g/dL (6.6-8.7)
[2024-04-19 06:48] LABS: Cholesterol 139 mg/dL (0-200); HDL Cholesterol 87 mg/dL (60-100); LDL Cholesterol Calculated 40 mg/dL (50-129); Magnesium 1.9 mg/dL (1.7-2.3); Triglycerides 58 mg/dL (0-150); VLDL Cholestrol Calculation 12 mg/dL (0-30)
[2024-04-19 07:03] LABS: Folate Level 18.9 ng/mL (4.8-37.3)
[2024-04-19] MEDS: levalbuterol 0.63 mg/3 mL Neb 0.630000000000000004 MG INHALATION ×3 (08:39→20:10)
[2024-04-19] MEDS: budesonide 0.5 mg/2 mL Neb INHALATION ×2 (08:40→20:10)
[2024-04-19] MEDS: ipratropium 0.5 mg/2.5 mL Neb INHALATION ×3 (08:40→20:10)
[2024-04-19] MEDS: LORazepam 0.5 mg Tablet PO ×2 (09:32→20:49)
[2024-04-19] MEDS: potassium chloride ER 20 mEq Tablet 40 MEQ PO (09:32)
[2024-04-19] MEDS: amlodipine 10 mg Tablet PO (09:32)
[2024-04-19] MEDS: tamsulosin 0.4 mg Capsule 0.400000000000000022 MG PO (09:32)
[2024-04-19] MEDS: famotidine 20 mg Tablet PO ×2 (09:32→17:21)
[2024-04-19] MEDS: insulin lispro 100 unit/1 mL SUBCUT ×2 (09:33→17:18)
--- NOTE | 2024-04-19 09:34 | PM.PN ---
Subjective Subjective: no new c/o Medications: Reviewed: Yes Vitals/I&O/Wt Last Vital Signs Temp 98.5 F 04/19/24 04:00 Pulse 81 04/19/24 08:00 Resp 18 04/19/24 08:00 BP 136/71 04/19/24 04:00 Pulse Ox 98 04/19/24 08:00 O2 Del Method Room Air 04/19/24 08:00 04/18/24 04/19/24 04/19/24 22:59 06:59 14:59 Intake Total 1630 / 3081.667 240 / 3321.667 931.667 / 931.667 Output Total 1500 / 1900 850 / 2750 Balance 130 / 1181.667 -610 / 571.667 931.667 / 931.667 Weight last 48 hrs Weight 55.395 kg Weight 55.395 kg Weight 55.423 kg Weight 50.349 kg Physical Exam Narrative: Awake, alert, no distress HEENT S1-S2 regular rate and rhythm per report Lungs clear per report No pedal edema Urinary Catheter Management: Cox: Cath Placed During This Visit: yes Reason for Continuing Indwelling Catheter: Other Urinary Catheter Date of Insertion: 04/17/24 Urinary Catheter Time of Insertion: 16:41 Data 04/19/24 05:50 04/19/24 05:50 Micro: Microbiology 04/17/24 10:54 Urine Culture - Preliminary Urine,Clean Catch A&P Assessment and plan (1) JOE (acute kidney injury): 1. Acute kidney injury: Baseline creatinine not available, creatinine on presentation was 4.1, in the setting of obstructive uropathy and prerenal state. Continue IV fluids and continue to monitor, Cox catheter placed. Avoid nephrotoxic agents and IV contrast studies. No indication for dialysis. Will check serologies. Likely has neurogenic bladder - Cr better @ 3.4 today , - plan for CT today and attempt voiding trial today - needs Nephrology f/u as out pt 2. Metabolic acidosis: improved 3. History of hypertension, on amlodipine, 4. History of diabetes, metformin dcd , Patient evaluated recent admission. Time spent 20 minutes. Attestations Medical Necessity Statement*: per medicine team Coding Level of Care Code Acute Code for [facility] Fwd Diagnoses JOE (acute kidney injury) N17.9
[2024-04-19 10:24] LABS: Complement C3 135 mg/dL (90-180)
[2024-04-19 11:31] LABS: Glucose Point of Care 112 mg/dL (70-110)
--- NOTE | 2024-04-19 11:46 | CTR_ITS ---
PROCEDURE INFORMATION: Exam: CT Abdomen And Pelvis Without Contrast Exam date and time: 04/19/2024 3:36 PM Age: 83 years old Clinical indication: Other: Monitoring for b/l hydronephrosis, bladder obs TECHNIQUE: Imaging protocol: Computed tomography of the abdomen and pelvis without contrast. Radiation optimization: All CT scans at this facility use at least one of these dose optimization techniques: automated exposure control; mA and/or kV adjustment per patient size (includes targeted exams where dose is matched to clinical indication); or iterative reconstruction. COMPARISON: CT abdomen pelvis wo con [id number] 04/17/2024 11:27 AM RADIATION DOSE METRICS: Total DLP (mGy-cm): 326.96 FINDINGS: Lungs: Basilar atelectasis subjacent to the effusions with interstitial coarsening, bronchiectasis, bronchial wall thickening and mucous plugging. Pleural spaces: Interval appearance tiny bilateral pleural effusions. Coronary arteries: Coronary artery calcifications. Diaphragm: [id number] hiatal hernia. Liver: Stable indeterminate hypodensity in the inferior aspect of the right hepatic lobe measuring 6 mm on series 3, image 30. Gallbladder and biliary ducts: Gallbladder is distended tiny layering calculi versus mural calcification on series 3, image 30. No biliary dilatation. Pancreas: No significant pancreatic pathology. Spleen: No significant splenic pathology. Adrenal glands: Ovoid right adrenal mass is again noted measuring up to 4.3 x 2.3 cm, indeterminate by criteria. Left adrenal is unremarkable. Compared with the prior study there has been interval mild dilatation of the left pelvicalyceal system with an extrarenal pelvis again seen. Is mild thickening of the wall of the pelvicalyceal system. No obstructing lesion is seen at the ureteral pelvic junction. The left ureter is normal in caliber. Interval appearance minimal right pelvicaliectasis also associated with mural thickening of the collecting system and with normal caliber ureter Kidneys and ureters: See Adrenal glands finding. Stomach and bowel: Colonic diverticulosis without evidence of focal inflammatory change. Appendix: No appendiceal pathology evident. Intraperitoneal space: No ascites. Vasculature: No abdominal aortic aneurysm. Lymph nodes: No evidence of lymphadenopathy. Urinary bladder: Urinary bladder is decompressed by Cox catheter limiting assessment of the wall. Reproductive: Prior hysterectomy. No significant adnexal pathology. Bones/joints: Marked degenerative change present in the spine. Soft tissues: Small bilateral fat containing inguinal hernias. CT/CT abdomen pelvis wo con [id number] IMPRESSION: 1. Interval appearance of mild left and minimal right pelvicaliectasis no evidence of ureteral dilatation discrete obstructive pathology. Mild diffuse mural thickening of the pelvicalyceal systems again noted bilaterally. 2. Right adrenal mass measuring up to 4.3 cm as previously described; dedicated adrenal CT could be performed for assessment of washout ratio. 3. Interval appearance of tiny bilateral pleural effusions. Extensive basilar pulmonary abnormalities consistent with bronchiectasis and bronchitis. 4. Minor findings including hiatal hernia again noted as detailed above.
[2024-04-19] MEDS: cefTRIAXone 1,000 MG in sodium chloride 0.9% (plus) 50 ML 100 MG IV (11:57)
--- NOTE | 2024-04-19 15:23 | PC.NURSE ---
Per Dr. Mcneal- awaiting CT results to determine if still removing hutson.
--- NOTE | 2024-04-19 15:38 | P.PN_ITS ---
Subjective 2 Subjective: No acute events overnight. Seen with daughter at bedside. Urine output of 2.3 L in last 24 hours. Patient sitting up in chair. Denies any nausea, vomiting, headache. States feeling better. In pleasant mood. Saturating well on room air. Vitals/I&O/Wt Last Vital Signs Temp 98.4 F 04/19/24 12:00 Pulse 91 04/19/24 14:37 Resp 16 04/19/24 14:00 BP 126/70 04/19/24 12:00 Pulse Ox 94 04/19/24 14:00 O2 Del Method Room Air 04/19/24 14:00 04/19/24 04/19/24 04/19/24 06:59 14:59 22:59 Intake Total 240 / 3321.667 1461.667 / 1461.667 Output Total 850 / 2750 900 / 900 Balance -610 / 571.667 561.667 / 561.667 Weight last 48 hrs Weight 55.395 kg Weight 55.395 kg Weight 55.423 kg Physical Exam 2 Narrative: General: No acute distress, AO x3, dehydrated HEENT: PERRLA, pupils bilaterally equal and reactive Chest: Normal vesicular breath sounds, no added sounds, equal good air entry bilaterally CVS: S1-S2 regular, no murmurs, no tachycardia, no gallops, no rubs Abdomen: Soft, nontender, no organomegaly, bowel sounds present Neuro: No focal deficits, no facial deformity, AO x3, power 5/5 in all limbs Urinary Catheter Management: Cox: Cath Placed During This Visit: yes Reason for Continuing Indwelling Catheter: Other Urinary Catheter Date of Insertion: 04/17/24 Urinary Catheter Time of Insertion: 16:41 Data 04/19/24 05:50 04/19/24 05:50 Micro: Microbiology 04/17/24 10:54 Urine Culture - Final Urine,Clean Catch A&P Assessment and plan (1) Renal failure: Most likely in setting of dehydration with bladder outlet obstruction leading to bilateral hydronephrosis. Concern for prerenal etiology. Medical reconciliation done for nephrotoxic drugs. Creatinine down to 3.7. Nephrology on board. Switch to D5W with sodium bicarbonate at 100 cc/h today as per nephrology recommendations. Repeat BMP in evening. Monitor electrolytes. Continue with Cox catheterization. Will repeat CT abdomen pelvis the next 24 to 48 hours. (2) Bilateral hydronephrosis: Noted on renal ultrasound. Somehow not seen on CT abdomen pelvis done yesterday. In setting of bladder outlet obstruction. Continue to monitor. Cox catheterization. Will need a repeat imaging prior to discharge. Will need to follow-up with urology as an outpatient. Start on Flomax 0.4 mg daily. (3) Urinary obstruction: (4) Urinary tract infection: Denies any dysuria. Started on ceftriaxone on admission. Follow-up urine culture. De-escalate as per culture results. Blood culture not sent on admission. If spikes a fever will send a blood culture. (5) Cystocele: (6) Elevated blood sugar: No formal diagnosis of type 2 diabetes mellitus. A1c checked in more than 8. Could definitely have symptoms concerning for diabetic nephropathy. Insulin sliding scale before meals and at bedtime. Most likely will need to be discharged on oral hypoglycemics versus insulin depending on creatinine clearance. (7) History of lung cancer: Followed with Dr. Melara in [place] and is currently on immunotherapy which she gets every 4 weeks IV. Specific type of lung cancer and treatment not known but she is in year 3 of management. Start on Pulmicort twice daily and DuoNebs every 6 hours. Oxygen supplementation keeping saturation 90%. (8) COPD (chronic obstructive pulmonary disease): On as needed albuterol, has a bit of a cough currently but respiratory symptoms otherwise not changed from baseline. No exacerbation noted. (9) Hypertension: Primary hypertension, chronically on amlodipine Goal blood pressure less than 140/90 mmHg. 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 VTE prophylaxis: subcu heparin GI Prophylaxis: Famotidine for PUD prophylaxis Cox: ordered secondary to will appears to be obstructive uropathy and acute renal failure CODE STATUS: Discussed in detail with the patient with family at bedside. Patient would not want to be on life support like ventilator but is okay with chest compressions. CODE STATUS changed to limited resuscitation Disposition plan: Home with outpatient follow up to primary care provider, potentially urology and/or gynecology and her oncologist Dr. Melara anticipated. Currently expect she will likely go home with Cox catheter and will need instruction on how to use this and care for it at home. Also anticipate oral antibiotics at discharge and follow-up laboratory studies given renal dysfunction. Plan for the day: Creatinine has remained stable. Acidosis has resolved. Stop IV fluids. Continue with oral Flomax. Replace potassium with 40 mg orally. Continue with IV ceftriaxone. Appreciate urine culture results. Most likely will discharge on oral cefdinir versus Keflex finish a 7-day course. Repeat CT abdomen pelvis to monitor for bilateral hydronephrosis. Depending on the CT results we will plan to remove catheter and do a voiding trial. Otherwise patient would most likely need to follow-up with nephrology and urology as an outpatient. If renal functions remained stable within next 24 hours we will plan to discharge to home. Attestations 2 Medical Necessity Statement*: Requires further hospitalization for management of acute kidney injury in setting of bladder outlet obstruction with bilateral hydronephrosis Diagnoses Renal failure N19 Bilateral hydronephrosis N13.30 Urinary obstruction N13.9 Urinary tract infection N39.0 Cystocele Elevated blood sugar R73.9 History of lung cancer Z85.118 COPD (chronic obstructive pulmonary disease) J44.9 Hypertension I10 Adrenal mass E27.8 Anxiety F41.9
[2024-04-19 16:59] LABS: Glucose Point of Care 309 mg/dL (70-110)
[2024-04-19 20:28] LABS: Glucose Point of Care 108 mg/dL (70-110)
[2024-04-20 02:00] VITALS: PULSE 82; RESP 18; O2SAT 98
[2024-04-20 04:00] VITALS: BP 130/71; PULSE 61; RESP 18; TEMP 36.9; O2SAT 93
[2024-04-20 04:07] VITALS: BMI 20.4
[2024-04-20] MEDS: heparin 5,000 unit/mL INJ 1 mL 5000 UNIT SUBCUT (04:42)
[2024-04-20 06:00] VITALS: BMI 20.3
[2024-04-20 06:13] LABS: Basophils % 0.4 %; Eosinophils # 0.1 10^3/uL (0.0-0.8); Eosinophils % 0.8 %; Hematocrit 31.9 % (36-47); Lymphocytes # 1.6 10^3/uL (0.8-4.8); Mean Corpuscular HGB Conc 33.2 g/dL (30-55); Mean Corpuscular Hemoglobin 28.3 pg (27-33); Mean Corpuscular Volume 85.1 fl (85-98); Mean Platelet Volume 9.5 fL (7.4-10.4); Monocytes # 0.6 10^3/uL (0.2-0.9); Monocytes % 8.3 %; Neutrophils # 5.02 10^3/uL (1.8-7.7); Neutrophils % 68.4 %; Nucleated Red Blood Cells % 0 %; Platelet Count 301 10^3/cmm (157-399); Red Blood Count 3.75 10^6/uL (3.85-5.65); Red Cell Distribution Width 14.1 % (12.1-15.1); White Blood Count 7.35 10^3/uL (3.29-11.43)
[2024-04-20 06:22] LABS: Glucose Point of Care 102 mg/dL (70-110)
[2024-04-20 06:35] LABS: Alanine Aminotransferase 80 U/L (0-33); Albumin Level 3.4 g/dL (3.5-5.2); Alkaline Phosphatase 200 U/L (35-105); Anion Gap 17.2 (5-19); Aspartate Amino Transferase 50 U/L (0-32); Blood Urea Nitrogen 43 mg/dL (8-23); Calcium 8.5 mg/dL (8.5-10.5); Carbon Dioxide 22 mmol/L (22-29); Chloride 104 mmol/L (98-107); Creatinine Clr Calc Pharmacy 11.3545; Globulin 3.8 g/dL (1.3-4.6); Glucose 96 mg/dL (65-115); Osmolality Calculated 301 mOsm/kg (285-295); Potassium 3.2 mmol/L (3.5-5.1); Sodium 140 mmol/L (136-145); Total Bilirubin 0.4 mg/dL (0.15-1.2); Total Protein 7.2 g/dL (6.6-8.7)
[2024-04-20 06:39] LABS: Magnesium 1.7 mg/dL (1.7-2.3)
[2024-04-20 06:56] VITALS: BP 131/70; PULSE 84; RESP 17; O2SAT 92
[2024-04-20 08:00] VITALS: PULSE 101; RESP 20; O2SAT 92
[2024-04-20] MEDS: levalbuterol 0.63 mg/3 mL Neb 0.630000000000000004 MG INHALATION (08:43)
[2024-04-20] MEDS: amlodipine 10 mg Tablet PO (09:09)
[2024-04-20] MEDS: tamsulosin 0.4 mg Capsule 0.400000000000000022 MG PO (09:09)
[2024-04-20] MEDS: famotidine 20 mg Tablet PO (09:09)
[2024-04-20 10:57] VITALS: BP 134/73; PULSE 91; RESP 17; TEMP 36.8; O2SAT 98
--- NOTE | 2024-04-20 11:30 | P.DS_ITS ---
Discharge Providers Date of Admission: 04/17/24 13:25 Date of Discharge: April 20, 2024 Attending Provider at Admission: Elodia Douglas MD Attending Provider at Discharge: Prasanna Mcneal MD Diagnoses at Discharge Discharge Diagnosis (1) JOE (acute kidney injury): Status: Acute Reason for Visit Reason for Visit: Dr. Arroyo sent over--for kidney failure Brief History: History as per HPI: Ai Jackson is a 83 year old female who presented to the emergency room due to abnormal laboratory studies. She was seen yesterday at her primary care provider's office for follow-up check. Some time recently she had been started on metformin due to elevation in blood sugar. Does not have a formal diagnosis of diabetes but laboratory studies have been noted to be abnormal. She did take metformin as prescribed initially and subsequently developed diarrhea. She then quit taking the metformin due to the frequency of diarrhea which was unbelievable . She stopped taking metformin more than a week ago. Blood work was rechecked yesterday and creatinine was noted to be 3.8. Mrs. Jackson has a history of lung cancer, specific type unknown but she is being managed with immunotherapy and follows with Dr. Melara in [place]. Original diagnosis was 3 years ago. The last time that she had lab work done they told her that her kidneys were not functioning completely normal but she nor family present have the exact numerical values. Lab work done at the clinic yesterday was significantly abnormal however and Ms. Jackson was sent to the emergency room. Here she had BUN and creatinine of 57/4.1. Potassium was 4.0. Of note blood sugars were 173. In talking with her she does have urinary frequency and incont inence, urgency. She denies any flank pain. She has not had any fevers, nausea, abdominal pain. Again she only had diarrhea after taking metformin. Denies dysuria. Urinalysis came back with indications of infection. Given apparent new renal failure and UTI she received Rocephin and some IV fluids and request was made for admission. CT imaging did not show any evidence of obstructive uropathy though an adrenal mass was noted. In talking with family they do not believe that this is a new finding but do not have prior details. Nephrology requested a renal ultrasound and this did actually show bilateral hydronephrosis and a distended bladder suggesting an obstructive uropathy. Home medications include lorazepam, amlodipine and as needed albuterol and the recently discontinued metformin. History is obtained from Mrs. Jackson who lives alone as well as family member present in the room. Hospital Course Hospital Course Patient was admitted to the hospital further evaluation and management of acute kidney injury. On admission ultrasound kidneys showed bilateral hydronephrosis concerning for obstructive uropathy. Cox catheter was placed. She was started on gentle IV hydration and nephrology was consulted. Patient continued to have good urine output and her creatinine improved to a possible of new baseline of 4.3. During hospitalization she was also found to have elevated blood sugars for which her antidiabetic medications were adjusted. Repeat CT abdomen pelvis showed improvement in hydronephrosis. Cox catheter was removed and patient passed voiding trial. She has been advised to follow-up as an outpatient with her primary care provider within next 1 week and urologist along with clutch mechanic within next 2 weeks. For diabetes going forward she will need to be on Januvia 100 mg oral daily along with Lantus 5 units every evening. She is to check her blood sugar daily at home and maintain a blood sugar diary. She is also being discharged on Flomax 0.4 mg daily. Physical Exam Narrative: General: No acute distress, AO x3, HEENT: PERRLA, pupils bilaterally equal and reactive Chest: Normal vesicular breath sounds, no added sounds, equal good air entry bilaterally CVS: S1-S2 regular, no murmurs, no tachycardia, no gallops, no rubs Abdomen: Soft, nontender, no organomegaly, bowel sounds present Neuro: No focal deficits, no facial deformity, AO x3, power 5/5 in all limbs Urinary Catheter Management: Cox: Cath Placed During This Visit: yes, but has since been removed by the nurse Reason for Continuing Indwelling Catheter: Decision to DC Catheter Urinary Catheter Date of Insertion: 04/17/24 Urinary Catheter Time of Insertion: 16:41 Date Urinary Catheter Removed: 04/19/24 Time Urinary Catheter Discontinued: 18:31 Discharge Data Studies Completed and Pending Completed Studies During Hospitalization Category Date Time Status CT abdomen pelvis wo con [id number] Routine Cat Scan 04/19/24 11:[address] abdomen pelvis wo con [id number] Stat Cat Scan 04/17/24 10:09 Completed US renal BI* [id number] Stat Ultrasound 04/17/24 12:58 Completed Pending at discharge Category Date Time Status [place] Profile Rheumatology Routine Lab 04/19/24 09:53 Received ANCA [Anti-Neutrophil Cytoplasmic AB] Routine Lab 04/19/24 09:53 Received MAG [Magnesium] AM LABS Lab 04/21/24 04:00 Ordered Radiology Impressions Renal Ultrasound 04/17/24 12:58 IMPRESSION: 1. Bilateral hydronephrosis and moderate distention of urinary bladder. The possibility of bladder outlet obstruction should be considered. 2. The kidneys are otherwise well preserved. No solid or cystic renal mass. No obvious shadowing calculi noted. Abdomen/Pelvis CT 04/19/24 11:46 IMPRESSION: 1. Interval appearance of mild left and minimal right pelvicaliectasis no evidence of ureteral dilatation discrete obstructive pathology. Mild diffuse mural thickening of the pelvicalyceal systems again noted bilaterally. 2. Right adrenal mass measuring up to 4.3 cm as previously described; dedicated adrenal CT could be performed for assessment of washout ratio. 3. Interval appearance of tiny bilateral pleural effusions. Extensive basilar pulmonary abnormalities consistent with bronchiectasis and bronchitis. 4. Minor findings including hiatal hernia again noted as detailed above. Laboratory Results WBC 7.35 10^3/uL (3.29-11.43) 04/20/24 05:20 RBC 3.75 10^6/uL (3.85-5.65) L 04/20/24 05:20 Hgb 10.60 g/dL (11.27-16.99) L 04/20/24 05:20 Hct 31.9 % (36-47) L 04/20/24 05:20 MCV 85.1 fl (85-98) 04/20/24 05:20 MCH 28.3 pg (27-33) 04/20/24 05:20 MCHC 33.2 g/dL (30-55) 04/20/24 05:20 RDW 14.1 % (12.1-15.1) 04/20/24 05:20 Plt Count 301 10^3/cmm (157-399) 04/20/24 05:20 MPV 9.5 fL (7.4-10.4) 04/20/24 05:20 Neut % (Auto) 68.4 % 04/20/24 05:20 Lymph % (Auto) 22.0 % 04/20/24 05:20 Larue % (Auto) 8.3 % 04/20/24 05:20 Eos % (Auto) 0.8 % 04/20/24 05:20 Baso % (Auto) 0.4 % 04/20/24 05:20 Neut # (Auto) 5.02 10^3/uL (1.8-7.7) 04/20/24 05:20 Lymph # (Auto) 1.6 10^3/uL (0.8-4.8) 04/20/24 05:20 Larue # (Auto) 0.6 10^3/uL (0.2-0.9) 04/20/24 05:20 Eos # (Auto) 0.1 10^3/uL (0.0-0.8) 04/20/24 05:20 Baso # (Auto) 0.0 10^3/uL (0.0-0.1) 04/20/24 05:20 Nucleated RBC % (auto) 0 % 04/20/24 05:20 Nucleated RBCs # 0.0 /100WBC 04/20/24 05:20 Sodium 140 mmol/L (136-145) 04/20/24 05:20 Potassium 3.2 mmol/L (3.5-5.1) L 04/20/24 05:20 Chloride 104 mmol/L (98-107) 04/20/24 05:20 Carbon Dioxide 22 mmol/L (22-29) 04/20/24 05:20 Anion Gap 17.2 (5-19) 04/20/24 05:20 BUN 43 mg/dL (8-23) H 04/20/24 05:20 Creatinine 3.4 mg/dL (0.5-0.9) H 04/20/24 05:20 GFR Calculation Not Reportable 04/20/24 05:20 Glucose 96 mg/dL (65-115) 04/20/24 05:20 POC Glucose 102 mg/dL (70-110) 04/20/24 06:05 Estimat Average Glucose 183 04/18/24 05:17 Hemoglobin A1c 8.0 % (4.0-6.0) H 04/18/24 05:17 Calculated Osmolality 301 mOsm/kg (285-295) H 04/20/24 05:20 Calcium 8.5 mg/dL (8.5-10.5) 04/20/24 05:20 Phosphorus 4.2 mg/dL (2.5-4.5) 04/18/24 05:17 Magnesium 1.7 mg/dL (1.7-2.3) 04/20/24 05:20 Iron 82 ug/dL (37-145) 04/18/24 05:17 TIBC 269 mcg/dl 04/18/24 05:17 % Saturation 30.4 % (20-50) 04/18/24 05:17 Unsat Iron Binding 187 ug/dL (112-347) 04/18/24 05:17 Total Bilirubin 0.4 mg/dL (0.15-1.2) 04/20/24 05:20 AST 50 U/L (0-32) H 04/20/24 05:20 ALT 80 U/L (0-33) H 04/20/24 05:20 Alkaline Phosphatase 200 U/L (35-105) H 04/20/24 05:20 Creatine Kinase 53 U/L (26-192) 04/18/24 05:17 Total Protein 7.2 g/dL (6.6-8.7) 04/20/24 05:20 Albumin 3.4 g/dL (3.5-5.2) L 04/20/24 05:20 Globulin 3.8 g/dL (1.3-4.6) 04/20/24 05:20 Triglycerides 58 mg/dL (0-150) 04/19/24 05:50 Cholesterol 139 mg/dL (0-200) 04/19/24 05:50 LDL Cholesterol, Calc 40 mg/dL (50-129) L 04/19/24 05:50 Total VLDL Cholesterol 12 mg/dL (0-30) 04/19/24 05:50 HDL Cholesterol 87 mg/dL (60-100) 04/19/24 05:50 Cholesterol/HDL Ratio 1.60 mg/dL (0.0-4.40) 04/19/24 05:50 Vitamin B12 1189 pg/mL (232-1245) 04/18/24 05:17 Folate 18.9 ng/mL (4.8-37.3) 04/19/24 05:50 TSH 1.52 uIU/mL (0.27-4.20) 04/18/24 05:17 Urine Color Yellow (Yellow) 04/17/24 10:54 Urine Appearance Cloudy (CLEAR) A 04/17/24 10:54 Urine pH 6 (5-7) 04/17/24 10:54 Ur Specific [place] 1.010 (1.005-1.030) 04/17/24 10:54 Urine Protein 1+ (Negative) H 04/17/24 10:54 Urine Glucose (UA) 1+ (Normal) H 04/17/24 10:54 Urine Ketones 1+ (Negative) H 04/17/24 10:54 Urine Blood 2+ (Negative) H 04/17/24 10:54 Urine Nitrate Negative (Negative) 04/17/24 10:54 Urine Bilirubin Neg (Negative) 04/17/24 10:54 Urine Urobilinogen Norm mg/dL (Negative) 04/17/24 10:54 Ur Leukocyte Esterase 2+ (Negative) H 04/17/24 10:54 Urine RBC 5-10 /hpf (0-2) H 04/17/24 10:54 Urine WBC >100 /hpf (0-5) 04/17/24 10:54 Ur Squamous Epith Cells 10-15 /hpf (0-5) H 04/17/24 10:54 Ur Transition Epith Cell 0-4 /hpf 04/17/24 10:54 Amorphous Sediment Trace /hpf 04/17/24 10:54 Urine Bacteria 1+ /hpf (NONE) H 04/17/24 10:54 Fine Granular Casts 0-4 /lpf H 04/17/24 10:54 Urine Mucus None /hpf 04/17/24 10:54 Ur Oval Fat Bodies 2+ /hpf 04/17/24 10:54 Ur Random Sodium 55 mmol/L 04/18/24 10:54 Ur Random Potassium 28 mmol/L 04/18/24 10:54 Ur Random Chloride 45 mmol/L 04/18/24 10:54 Urine Creatinine 68 mg/dL (28-217) 04/18/24 10:54 Complement C3 135 mg/dL (90-180) 04/19/24 09:53 Complement C4 36 mg/dL (10-40) 04/19/24 09:53 Vitals Last Vital Signs Temp 98.2 F 04/20/24 10:57 Pulse 91 04/20/24 10:57 Resp 17 04/20/24 10:57 BP 134/73 04/20/24 10:57 Pulse Ox 98 04/20/24 10:57 O2 Del Method Room Air 04/20/24 10:57 Discharge Plan Discharge Patient Disposition: Home Condition: Stable Prescriptions: New tamsulosin 0.4 mg Capsule 0.4 mg PO DAILY Qty: 30 0RF Januvia 100 mg tablet 100 mg PO DAILY Qty: 30 0RF Lantus Solostar U-100 Insulin 100 unit/mL (3 mL) insulin pen 5 unit SUBCUT DAILY Qty: 15 0RF Continued lorazepam 0.5 mg tablet 0.5 mg PO BID PRN (Reason: SEVERE AGITATION) amlodipine 10 mg tablet 10 mg PO DAILY albuterol sulfate 90 mcg/actuation HFA aerosol inhaler 2 puff INHALATION QID PRN (Reason: Wheezing) Discharge Orders: Discharge Order (Routine); Ordered 04/20/24 Ordered By: Prasanna Mcneal Other Ambulatory Orders: US renal BI with PV bladder (Routine) Timeframe: 2 Weeks Facility: [facility] - Location: Radiology [facility] Ordered By: Prasanna Mcneal Referrals: Iban Gudino [Referring] - (We have notified your physician's clinic of the need for a follow-up appointment to be scheduled. If you have not heard from them within the next 2 business days, please call them directly. ) Bj Jacobson MD [Referring] - (We have notified your physician's clinic of the need for a follow-up appointment to be scheduled. If you have not heard from them within the next 2 business days, please call them directly. ) Capri Barker MD [Referring] - 05/01/24 10:45 am Discharge Diet: Diabetic Discharge Activity: Resume usual activity and Increase activity as tolerated Patient Instructions: COPD, Tamsulosin (By mouth), Sitagliptin (By mouth), Insulin Glargine (By injection), Acute Kidney Injury (GEN), COPD Stoplight, Opioid Safety Activity Restrictions/Additional Instructions: Please follow-up with nephrology within next 2 weeks. Please follow-up with your primary care provider within next 1 week to 10 days. He should have a repeat BMP done in 1 week. Please follow-up with urology within next 7 to 10 days. Goal blood pressure less than 140/90 mmHg. Continue taking amlodipine as before. Do not take metformin anymore for diabetes. Instead take Januvia 100 mg oral daily along with Lantus which is the long-acting insulin 5 units 1 time a day. Please check your blood sugar daily at home and maintain a blood sugar diary and follow-up with a primary care provider for further adjustment of antidiabetic medications. Goal fasting blood sugar is less than 120 and premeals is less than 140. Discharge Attestations Time Spent in Discharge Care*: greater than 30 min Specific Discharge Activities: educating patient, educating and/or supporting family/caregiver, discussing with pcp/other providers, discussing with community case manager/social workers/dc planners, documenting/other paperwork and evaluating patient/reviewing data Status at Discharge: Cognitive status at discharge: cognitively intact , Behavioral status at discharge: cooperative , Functional status at discharge: independent ambulation , Overall status at discharge: patient is back to b as[facility] Quality Metrics Clinical Quality Measures [ No reported AMI, CVA or VTE this stay] Coding Level of Care Code 33563 Total time (in minutes) for Discharge: 60 Diagnoses JOE (acute kidney injury) N17.9
[2024-04-20 11:31] LABS: Glucose Point of Care 180 mg/dL (70-110)
[2024-04-20] MEDS: potassium chloride ER 20 mEq Tablet 40 MEQ PO (12:22)
[2024-04-20] MEDS: cefTRIAXone 1,000 MG in sodium chloride 0.9% (plus) 50 ML 100 MG IV (12:23)
[2024-04-20] MEDS: insulin lispro 100 unit/1 mL SUBCUT (12:23)
[2024-04-20 12:30] VITALS: BP 134/73; PULSE 91; RESP 17; TEMP 36.8; O2SAT 98
[2024-04-20 13:15] LABS: COMPLEMENT, TOTAL (CH50) >60 U/mL (31-60)
[2024-04-20 16:30] LABS: CENTROMERE B ANTIBODY <1.0 NEG AI (<1.0 NEG); JO-1 ANTIBODY <1.0 NEG AI (<1.0 NEG); RNP ANTIBODY <1.0 NEG AI (<1.0 NEG); SCL-70 ANTIBODY <1.0 NEG AI (<1.0 NEG); SJOGREN'S ANTIBODY (SS-A) <1.0 NEG AI (<1.0 NEG); SM ANTIBODY <1.0 NEG AI (<1.0 NEG); SS-B <1.0 NEG AI (<1.0 NEG)
[2024-04-20 16:53] LABS: COMPLEMENT COMPONENT C3C 42 mg/dL; COMPLEMENT COMPONENT C4C 12 mg/dL
[2024-04-23 12:24] LABS: ANA PATTERN Cytoplasmic; ANA SCREEN, IFA POSITIVE (NEGATIVE)
[2024-04-23 13:33] LABS: THYROID PEROXIDASE ANTIBODIES 1 IU/mL (<9)
[2024-04-24 12:14] LABS: ANCA Screen P-ANCA POS (NEGATIVE); Anti-MPO (C-ANCA) 1:40 titer (<1:20)
[2024-04-29 18:45] LABS: DNA AB (DS) CRITHIDIA,IFA NEGATIVE (NEGATIVE)
== END 2024-04-20 14:15 | disposition home or self-care (01) | DRG 683 ==
LOC: ER 13:07 → MEDSURG 17:06
PROVIDERS: Hospitalist; Physician Assistant; Admitting Provider Hospitalist; Emergency Provider Emergency Medicine; Visit Provider Student in an Organized Health Care Education/Training Program
DX: N17.9 Acute kidney failure, unspecified (principal); E87.20 Acidosis, unspecified; N39.0 Urinary tract infection, site not specified; F41.9 Anxiety disorder, unspecified; I10 Essential (primary) hypertension; J44.9 Chronic obstructive pulmonary disease, unspecified; N13.30 Unspecified hydronephrosis; N81.10 Cystocele, unspecified; E11.65 Type 2 diabetes mellitus with hyperglycemia; E27.9 Disorder of adrenal gland, unspecified; R74.8 Abnormal levels of other serum enzymes; E86.0 Dehydration; Z79.891 Long term (current) use of opiate analgesic; Z85.118 Personal history of other malignant neoplasm of bronchus and lung
CPT/HCPCS: 36415; 36416; 51702; 74176; 76770; 80048; 80053; 80061; 81001; 82436; 82550; 82570; 82607; 82746; 82962; 83036; 83540; 83550; 83735; 84100; 84133; 84300; 84443; 85025; 86036; 86160; 86162; 86235; 86255; 86376; 87086; 94640; 96365; 96372; 99285; J0696; J1644; J1815; J7030; J7040; J7070; J7614; J7626; J7644; Q3014

== ENCOUNTER 2024-07-26 22:15 | Emergency (ER) | payer MEDICARE, SELFPAY ==
[2024-07-26 22:27] VITALS: BP 154/71; PULSE 87; RESP 18; TEMP 36.5; O2SAT 98; BMI 19.9
--- NOTE | 2024-07-26 22:41 | ED_ITS ---
HPI - Female Genitourinary General: Chief complaint: Urogenital-Female Stated complaint: catheter issues Time Seen by Provider: 07/26/24 22:39 History of Present Illness: 84-year-old female comes in today for di fficulty with Cox catheter. Since this afternoon the Cox catheter has had no further drainage. Patient is scheduled to have the Cox catheter changed in 1 week. Patient reports that had to be changed early last month. Patient reports pelvic pressure. Patient appears nontoxic. Patient appears in no acute distress. Patient does report some pain. Related Data Home Medications Medication Instructions Recorded Confirmed albuterol sulfate 90 mcg/actuation 2 puff inhalation QID PRN Wheezing 04/17/24 04/17/24 aerosol inhaler amlodipine 10 mg tablet 10 mg PO DAILY 04/17/24 04/17/24 lorazepam 0.5 mg tablet 0.5 mg PO BID PRN SEVERE AGITATION 04/17/24 04/17/24 Previous Rx's Medication Instructions Recorded insulin glargine 100 unit/mL (3 5 unit (0.05 mL) SUBCUT DAILY #15 04/20/24 mL) subcutaneous pen (Lantus mL Solostar U-100 Insulin) sitagliptin phosphate 100 mg 100 mg PO DAILY #30 tabs 04/20/24 tablet (Januvia) tamsulosin 0.4 mg capsule 0.4 mg PO DAILY #30 caps 04/20/24 nitrofurantoin macrocrystal 100 mg 100 mg PO BID 5 days #10 caps 07/27/24 capsule Allergies Allergy/AdvReac Type Severity Reaction Status Date / Time metformin Allergy ADR-Drowsy Verified 07/26/24 22:32 Review of Systems General: Reports: 10 or more systems reviewed and unremarkable except in HPI and below : Reports: difficulty voiding PFSH ED PFSH: Medical History (Updated 07/27/24 @ 00:28 by ERIC Lee) Adrenal mass Cystocele Anxiety Hypertension COPD (chronic obstructive pulmonary disease) History of lung cancer Type unknown, follows with Dr Cano in [place], on immunotherapy Surgical History (Updated 04/17/24 @ 16:26 by Elodia Douglas MD) History of hysterectomy Social History (Updated 04/17/24 @ 16:26 by Elodia Douglas MD) Smoking and tobacco/nicotine status: former use of tobacco/nicotine Lives independently: Yes Household members: none and other Details: family checks on her Physical Exam Const: COMMON NORMALS: alert HENMT: COMMON NORMALS: normocephalic HEAD & SCALP: normocephalic Neck/C-Spine: COMMON NORMALS: full ROM Resp: COMMON NORMALS: normal respiratory effort and clear to auscultation bilaterally AUSCULTATION: clear to auscultation bilaterally Cardio: COMMON NORMALS: regular rate RATE: regular rate Back/Pelvis: COMMON NORMALS: thoracic and lumbar spine normal to inspection Extremity: COMMON NORMALS: full ROM Neuro: SENSORIUM/ORIENTATION: Yes alert Skin: COMMON NORMALS: turgor normal GENERAL SKIN EXAM: turgor normal Course Vital Signs: Vital signs: Vital Signs Temperature 97.7 F 07/26/24 22:27 Pulse Rate 73 07/27/24 00:18 Respiratory Rate 18 07/27/24 00:18 Blood Pressure 145/76 07/27/24 00:18 Pulse Oximetry 98 07/27/24 00:18 Oxygen Delivery Me thod Room Air 07/27/24 00:18 MDM - Female Medical Decision Making 84-year-old female comes in today for nondraining Cox catheter. Patient appears nontoxic. Patient's abdomen is soft with some periumbilical tenderness. Vital signs are normal. Differential diagnosis includes not limited to urinary retention, dysfunctional Cox catheter, urinary tract infection. Cox catheter replaced with 600 mL out. Patient has greater than 100 white blood cells in the urine. We will treat for urinary tract infection. Patient will follow-up with primary care in 1 week for recheck. Return to ED for new concerns. Lab Data Laboratory Results Urine Color Yellow (Yellow) 07/27/24 00:08 Urine Appearance Cloudy (CLEAR) A 07/27/24 00:08 Urine pH 6.5 (5-7) 07/27/24 00:08 Ur Specific [place] 1.012 (1.005-1.030) 07/27/24 00:08 Urine Protein 2+ (Negative) A 07/27/24 00:08 Urine Glucose (UA) Negative (Normal) 07/27/24 00:08 Urine Ketones Negative (Negative) 07/27/24 00:08 Urine Blood 2+ (Negative) A 07/27/24 00:08 Urine Nitrate Negative (Negative) 10/04/24 00:08 Urine Bilirubin Negative (Negative) 07/27/24 00:08 Urine Urobilinogen 0.2 mg/dL (Negative) 07/27/24 00:08 Ur Leukocyte Esterase 3+ (Negative) A 07/27/24 00:08 Urine RBC 11-20 /hpf (0-2) H 07/27/24 00:08 Urine WBC >100 /hpf (0-5) H 07/27/24 00:08 Ur Squamous Epith Cells 0-5 /hpf (0-5) 07/27/24 00:08 Amorphous Sediment Not Reportable 07/27/24 00:08 Urine Bacteria Exceeds /hpf (NONE) 07/27/24 00:08 Hyaline Casts 3.71 /lpf 07/27/24 00:08 No radiology studies performed this visit Discharge Plan Discharge Patient Disposition: Home Clinical Impression: Urinary obstruction Condition: Stable Prescriptions: New nitrofurantoin macrocrystal 100 mg capsule 100 mg PO BID 5 Days Qty: 10 0RF Rx Instructions: must administer with a meal/food No Action lorazepam 0.5 mg tablet 0.5 mg PO BID PRN (Reason: SEVERE AGITATION) amlodipine 10 mg tablet 10 mg PO DAILY albuterol sulfate 90 mcg/actuation HFA aerosol inhaler 2 puff INHALATION QID PRN (Reason: Wheezing) tamsulosin 0.4 mg Capsule 0.4 mg PO DAILY Qty: 30 0RF Januvia 100 mg tablet 100 mg PO DAILY Qty: 30 0RF Lantus Solostar U-100 Insulin 100 unit/mL (3 mL) insulin pen 5 unit SUBCUT DAILY Qty: 15 0RF Discharge Orders: Discharge ED (Routine); Ordered 07/27/24 Ordered By: Daniele Brand Discharge Diet: Usual diet Discharge Activity: Increase activity as tolerated Patient Instructions: Cox Catheter Care, Chronic Urinary Retention in Women (ED) Activity Restrictions/Additional Instructions: Continue with present plan of care. Follow-up with primary care for further instructions. Return to ED for worsening symptoms such as high fever greater than 100.4, inability to hold fluids down, or new concerns. Coding Level of Care Code ED Fish Frog Or Oyster Farmer for Jimbo No
[2024-07-27 00:18] VITALS: BP 145/76; PULSE 73; RESP 18; O2SAT 98
[2024-07-27 00:19] LABS: Bilirubin Urine Negative (Negative); Blood Urine 2+ (Negative); Glucose Urine UA Negative (Normal); Ketones Urine Negative (Negative); Leukocyte Esterase Urine 3+ (Negative); Nitrate Urine Negative (Negative); Protein Urine 2+ (Negative); Specific Gravity, Urine 1.012 (1.005-1.030); Urine Appearance Cloudy (CLEAR); Urine Color Yellow (Yellow); Urobilinogen Urine 0.2 mg/dL (Negative); pH Urine 6.5 (5-7)
[2024-07-27 00:24] LABS: Add Urine Microscopic? YES; Bacteria Urine EXCEEDS /hpf; Hyaline Casts Urine 3.71 /lpf; Squamous Epithelial Cell Urine 0-5 /hpf (0-5); WBC Urine >100 /hpf (0-5)
[2024-07-27 00:26] LABS: Add Urine Culture? Yes
[2024-07-27] MEDS: nitrofurantoin SR (BID) 100 mg Capsule PO (00:50)
[2024-07-27 01:34] VITALS: BP 150/81; PULSE 75; O2SAT 97
== END 2024-07-27 01:00 | disposition home or self-care (01) ==
PROVIDERS: Emergency Provider Nurse Practitioner Family
DX: T83.098A Other mechanical complication of other urinary catheter, initial encounter (principal); Z79.4 Long term (current) use of insulin; I10 Essential (primary) hypertension; J44.9 Chronic obstructive pulmonary disease, unspecified; Z85.118 Personal history of other malignant neoplasm of bronchus and lung; Z87.891 Personal history of nicotine dependence
CPT/HCPCS: 51702; 81001; 87077; 87086; 87186; 99283

== ENCOUNTER 2024-10-01 14:42 | Inpatient (IN) | payer MEDICARE, SELFPAY ==
[2024-10-01] VITALS (22 sets, daily range): BP systolic 115–148; BP diastolic 50–84; PULSE 66–88; RESP 15–18; TEMP 36.8; O2SAT 95–99; BMI 19.2
--- NOTE | 2024-10-01 14:46 | XR_ITS ---
WS: [id number] Exam: XR chest 1V portable [id number] Date/Time of Exam: 10/01/2024 3:03 PM Reason For Exam: sob No priors. The lungs are hyperinflated and clear. Heart size is normal. There is tortuosity of the thoracic aort a. The mediastinum is normal in contour. A right-sided port ends in the lower one third of the SVC. B meena structures are intact. Small length of opaque tubing partially visualized in the upper RIGHT abdo men. This may represent a renal stent catheter. XR/XR chest 1V portable [id number] IMPRESSION: 1. Pulmonary hyperinflation. No acute process.
--- NOTE | 2024-10-01 15:21 | ED_ITS ---
HPI - Recheck/Abnormal Lab/Rx 2 General: Chief Complaint: Recheck/Abnormal Lab/Rx Stated Complaint: reffered by dony, lung cancer, bad infection Time Seen by Provider: 10/01/24 15:09 History of Present Illness: 84-year-old male presents to the emergen cy room complaining of having infection. She was advised by her physicians at [facility] to return to the nearest emergency room. She has had a positive blood culture. She had recently been hospitalized in [place]. She has known lung cancer with metastasis she is currently on immune therapy. She states she feels fine. She has not had any cough no abdominal pain no dysuria urgency or frequency she does have a early pressure ulcer over the sacrum but has not changed recently. Related Data Home Medications Medication Instructions Recorded Confirmed albuterol sulfate 90 mcg/actuation 2 puff inhalation QID PRN Wheezing 04/17/24 04/17/24 aerosol inhaler amlodipine 10 mg tablet 10 mg PO DAILY 04/17/24 04/17/24 lorazepam 0.5 mg tablet 0.5 mg PO BID PRN SEVERE AGITATION 04/17/24 04/17/24 Previous Rx's Medication Instructions Recorded insulin glargine 100 unit/mL (3 5 unit (0.05 mL) SUBCUT DAILY #15 04/20/24 mL) subcutaneous pen (Lantus mL Solostar U-100 Insulin) sitagliptin phosphate 100 mg 100 mg PO DAILY #30 tabs 04/20/24 tablet (Januvia) tamsulosin 0.4 mg capsule 0.4 mg PO DAILY #30 caps 04/20/24 Allergies Allergy/AdvReac Type Severity Reaction Status Date / Time metformin Allergy ADR-Drowsy Verified 10/01/24 14:54 Review of Systems 2 Const: Denies: fever(s) or chills Card: Denies: chest pain Resp: Denies: dyspnea GI: Denies: abdominal pain : Denies: dysuria, urinary frequency or urinary urgency Musc: Denies: neck pain or back pain Skin/Breast: Denies: rash PFSH ED 2 PFSH: Medical History (Updated 07/27/24 @ 00:28 by ERIC Lee) Adrenal mass Cystocele Anxiety Hypertension COPD (chronic obstructive pulmonary disease) History of lung cancer Type unknown, follows with Dr Cano in [place], on immunotherapy Surgical History (Updated 04/17/24 @ 16:26 by Elodia Douglas MD) History of hysterectomy Social History (Updated 04/17/24 @ 16:26 by Elodia Douglas MD) Smoking and tobacco/nicotine status: former use of tobacco/nicotine Lives independently: Yes Household members: none and other Details: family checks on her Physical Exam 2 Const: COMMON NORMALS: no acute distress GENERAL APPEARANCE: cooperative and comfortable ORIENTATION/CONSCIOUSNESS: Yes awake, Yes oriented to person, Yes oriented to place and Yes oriented to time HENMT: COMMON NORMALS: normocephalic, atraumatic and hearing grossly normal bilaterally HEAD & SCALP: normocephalic and atraumatic Resp: COMMON NORMALS: normal respiratory effort, No retractions, No use of accessory muscles and clear to auscultation bilaterally AUSCULTATION: clear to auscultation bilaterally Cardio: COMMON NORMALS: regular rate, regular rhythm and No murmurs present (Cardio) RATE: regular rate RHYTHM: regular rhythm GI: COMMON NORMALS: Soft to palpation and No hepatosplenomegaly present A USCULTATION: Yes normoactive bowel sounds PALPATION: Yes Soft to palpation, No Tenderness to palpation present (GI), No Guarding due to palpation present (GI) and Yes No hepatosplenomegaly present Extremity: COMMON NORMALS: normal to inspection, capillary refill normal, no clubbing, cyanosis or edema, no calf tenderness and no pedal edema Neuro: SENSORIUM/ORIENTATION: Yes oriented to person, Yes oriented to place and Yes oriented to time Skin: COMMON NORMALS: no rashes or lesions noted GENERAL SKIN EXAM: no rashes or lesions noted Course 2 Vital Signs: Vital signs: Vital Signs Temperature 98.2 F 10/01/24 14:47 Pulse Rate 86 10/01/24 14:47 Respiratory Rate 15 10/01/24 14:47 Blood Pressure 144/76 10/01/24 14:47 Pulse Oximetry 99 10/01/24 14:47 Oxygen Delivery Me thod Room Air 10/01/24 14:47 MDM - Recheck/Abnormal Lab/Rx Lab Data 10/01/24 15:40 10/01/24 15:40 Radiology Impressions Chest X-Ray 10/01/24 14:46 IMPRESSION: 1. Pulmonary hyperinflation. No acute process. Laboratory Results WBC 3.40 10^3/uL (3.29-11.43) 10/01/24 15:40 RBC 2.54 10^6/uL (3.85-5.65) L 10/01/24 15:40 Hgb 7.20 g/dL (11.27-16.99) L 10/01/24 15:40 Hct 22.4 % (36-47) L 10/01/24 15:40 MCV 88.2 fl (85-98) 10/01/24 15:40 MCH 28.3 pg (27-33) 10/01/24 15:40 MCHC 32.1 g/dL (30-55) 10/01/24 15:40 RDW 15.5 % (12.1-15.1) H 10/01/24 15:40 Plt Count 184 10^3/cmm (157-399) 10/01/24 15:40 MPV 10.0 fL (7.4-10.4) 10/01/24 15:40 Neut % (Auto) 67.6 % 10/01/24 15:40 Lymph % (Auto) 25.3 % 10/01/24 15:40 Sharp % (Auto) 5.3 % 10/01/24 15:40 Eos % (Auto) 1.2 % 10/01/24 15:40 Baso % (Auto) 0.3 % 10/01/24 15:40 Neut # (Auto) 2.30 10^3/uL (1.8-7.7) 10/01/24 15:40 Lymph # (Auto) 0.9 10^3/uL (0.8-4.8) 10/01/24 15:40 Sharp # (Auto) 0.2 10^3/uL (0.2-0.9) 10/01/24 15:40 Eos # (Auto) 0.0 10^3/uL (0.0-0.8) 10/01/24 15:40 Baso # (Auto) 0.0 10^3/uL (0.0-0.1) 10/01/24 15:40 Nucleated RBC % (auto) 0 % 10/01/24 15:40 Nucleated RBCs # 0.0 /100WBC 10/01/24 15:40 Sodium 133 mmol/L (136-145) L 10/01/24 15:40 Potassium 3.5 mmol/L (3.5-5.1) 10/01/24 15:40 Chloride 101 mmol/L (98-107) 10/01/24 15:40 Carbon Dioxide 22 mmol/L (22-29) 10/01/24 15:40 Anion Gap 13.5 (5-19) 10/01/24 15:40 BUN 25 mg/dL (8-23) H 10/01/24 15:40 Creatinine 1.5 mg/dL (0.5-0.9) H 10/01/24 15:40 GFR Calculation Not Reportable 10/01/24 15:40 Glucose 131 mg/dL (65-115) H 10/01/24 15:40 Calculated Osmolality 282 mOsm/kg (285-295) L 10/01/24 15:40 Lactic Acid 1.2 mmol/L (0.5-2.2) 10/01/24 15:40 Calcium 8.4 mg/dL (8.5-10.5) L 10/01/24 15:40 Total Bilirubin 0.2 mg/dL (0.15-1.2) 10/01/24 15:40 AST 72 U/L (0-32) H 10/01/24 15:40 ALT 127 U/L (0-33) H 10/01/24 15:40 Alkaline Phosphatase 84 U/L (35-105) 10/01/24 15:40 Total Protein 6.3 g/dL (6.6-8.7) L 10/01/24 15:40 Albumin 3.3 g/dL (3.5-5.2) L 10/01/24 15:40 Globulin 3.0 g/dL (1.3-4.6) 10/01/24 15:40 Urine Color Yellow (Yellow) 10/01/24 15:45 Urine Appearance Turbid (CLEAR) A 10/01/24 15:45 Urine pH 6.0 (5-7) 10/01/24 15:45 Ur Specific [place] 1.017 (1.005-1.030) 10/01/24 15:45 Urine Protein 2+ (Negative) A 10/01/24 15:45 Urine Glucose (UA) Negative (Normal) 10/01/24 15:45 Urine Ketones Negative (Negative) 10/01/24 15:45 Urine Blood 3+ (Negative) A 10/01/24 15:45 Urine Nitrate Negative (Negative) 10/01/24 15:45 Urine Bilirubin Negative (Negative) 10/01/24 15:45 Urine Urobilinogen 1.0 mg/dL (Negative) 10/01/24 15:45 Ur Leukocyte Esterase 3+ (Negative) A 10/01/24 15:45 Urine RBC 25-40 /hpf (0-2) H 10/01/24 15:45 Urine WBC Too numerous to cnt /hpf (0-5) H 10/01/24 15:45 Ur Squamous Epith Cells 5-10 /hpf (0-5) H 10/01/24 15:45 Amorphous Sediment Not Reportable 10/01/24 15:45 Urine Bacteria 4+ /hpf (NONE) H 10/01/24 15:45 Urine Mucus Trace /hpf 10/01/24 15:45 Discharge Plan Discharge Condition: Stable Prescriptions: No Action lorazepam 0.5 mg tablet 0.5 mg PO BID PRN (Reason: SEVERE AGITATION) amlodipine 10 mg tablet 10 mg PO DAILY albuterol sulfate 90 mcg/actuation HFA aerosol inhaler 2 puff INHALATION QID PRN (Reason: Wheezing) tamsulosin 0.4 mg Capsule 0.4 mg PO DAILY Qty: 30 0RF Januvia 100 mg tablet 100 mg PO DAILY Qty: 30 0RF Lantus Solostar U-100 Insulin 100 unit/mL (3 mL) insulin pen 5 unit SUBCUT DAILY Qty: 15 0RF Coding Level of Care Code ED Narrow Fabric Calenderer for Chg Fwd
[2024-10-01 15:50] LABS: Basophils % 0.3 %; Eosinophils % 1.2 %; Hematocrit 22.4 % (36-47); Lymphocytes # 0.9 10^3/uL (0.8-4.8); Lymphocytes % 25.3 %; Mean Corpuscular HGB Conc 32.1 g/dL (30-55); Mean Corpuscular Hemoglobin 28.3 pg (27-33); Mean Corpuscular Volume 88.2 fl (85-98); Monocytes # 0.2 10^3/uL (0.2-0.9); Monocytes % 5.3 %; Neutrophils % 67.6 %; Nucleated Red Blood Cells % 0 %; Platelet Count 184 10^3/cmm (157-399); Red Blood Count 2.54 10^6/uL (3.85-5.65); Red Cell Distribution Width 15.5 % (12.1-15.1)
[2024-10-01 16:07] LABS: Alanine Aminotransferase 127 U/L (0-33); Albumin Level 3.3 g/dL (3.5-5.2); Alkaline Phosphatase 84 U/L (35-105); Anion Gap 13.5 (5-19); Aspartate Amino Transferase 72 U/L (0-32); Blood Urea Nitrogen 25 mg/dL (8-23); Calcium 8.4 mg/dL (8.5-10.5); Carbon Dioxide 22 mmol/L (22-29); Chloride 101 mmol/L (98-107); Creatinine Clr Calc Pharmacy 22.0317; Glucose 131 mg/dL (65-115); Lactic Sepsis W/Reflex 1.2 mmol/L (0.5-2.2); Osmolality Calculated 282 mOsm/kg (285-295); Potassium 3.5 mmol/L (3.5-5.1); Sodium 133 mmol/L (136-145); Total Bilirubin 0.2 mg/dL (0.15-1.2); Total Protein 6.3 g/dL (6.6-8.7)
[2024-10-01 16:18] LABS: Bilirubin Urine Negative (Negative); Blood Urine 3+ (Negative); Glucose Urine UA Negative (Normal); Ketones Urine Negative (Negative); Leukocyte Esterase Urine 3+ (Negative); Nitrate Urine Negative (Negative); Protein Urine 2+ (Negative); Specific Gravity, Urine 1.017 (1.005-1.030); Urine Appearance Turbid (CLEAR); Urine Color Yellow (Yellow)
[2024-10-01 16:40] LABS: UA Manual Slide Review YES; UA Slide Review UA Slide Review Perf
[2024-10-01 16:42] LABS: Add Urine Culture? Yes; Add Urine Microscopic? YES; Bacteria Urine 4+ /hpf; Mucus Urine TRACE /hpf; RBC Urine 25-40 /hpf (0-2); WBC Urine TOO NUMEROUS TO CNT /hpf (0-5)
[2024-10-01] MEDS: MEROPENEM 2,000 MG in sodium chloride 0.9% (plus) 50 ML 100 MG IV (17:15)
[2024-10-01] MEDS: heparin 5,000 unit/mL INJ 1 mL 5000 UNIT SUBCUT (17:16)
[2024-10-01 17:59] LABS: Procalcitonin 0.24 ng/mL (0-0.5)
[2024-10-01] MEDS: VANCOMYCIN ADD-Vantage 1,000 MG in 0.9% NaCl ADD-Vantage 250 ML 250 MG IV (18:32)
--- NOTE | 2024-10-01 18:37 | P.HP_ITS ---
Providers/Chief Complaint 2 Chief Complaint: reffered by dony, lung cancer, bad infection History of Present Illness Ai Jackson is a 84 year old female with history of lung cancer, oncologist is at [facility], patient had Cox catheter removal 24 hours before her arrival in the ER, she required Cox catheter because to monitor urine output, she suffered from kidney injury related to hydronephrosis with obstructive uropathy, stent was placed by urologist in [place], as per daughter stent has not been removed, they have a close follow-up appointment in the next few weeks , her chemo and immunosuppression therapy has been put on hold secondary to kidney disease and generalized weakness, recently had workup done along blood cultures at [facility]. Today she was informed to go to the nearest ER because of positive blood cultures with Klebsiella which are pansensitive to gentamicin, ciprofloxacin, ceftriaxone, Augmentin cefazolin. I have reviewed culture report through online portal that patient's daughter had on the phone. Positive blood cultures 1 out of 2 bottles for Klebsiella variicola Patient is not endorsing nausea, vomiting, diarrhea, dysuria, chills, rigors, flank pain. Patient is endorsing feeling better and at her baseline. Patient is stating that once Cox catheter was removed she noticed blood in the urine, the color of the urine has improved but she is still noticing blood- tinged drops of urine at the end of urinary stream Review of Systems 2 Const: Reports: chills; Denies: fever(s) Eyes: Denies: change in vision ENMT: Denies: throat pain Card: Denies: chest pain Resp: Reports: dyspnea GI: Denies: abdominal pain : Denies: flank pain Musc: Denies: neck pain Medications/Allergies Home Medications Medication Instructions Recorded Confirmed Last Taken Type albuterol sulfate 90 mcg/actuation 2 puff inhalation QID PRN Wheezing 04/17/24 04/17/24 Unknown History aerosol inhaler amlodipine 10 mg tablet 10 mg PO DAILY 04/17/24 04/17/24 04/17/24 History lorazepam 0.5 mg tablet 0.5 mg PO BID PRN SEVERE AGITATION 04/17/24 04/17/24 04/17/24 History insulin glargine 100 unit/mL (3 5 unit (0.05 mL) SUBCUT DAILY #15 04/20/24 Unknown Rx mL) subcutaneous pen (Lantus mL Solostar U-100 Insulin) sitagliptin phosphate 100 mg 100 mg PO DAILY #30 tabs 04/20/24 Unknown Rx tablet (Januvia) tamsulosin 0.4 mg capsule 0.4 mg PO DAILY #30 caps 04/20/24 Unknown Rx Allergies Allergy/AdvReac Type Severity Reaction Status Date / Time metformin Allergy ADR-Drowsy Verified 10/01/24 14:54 PFSH Acute 2 PFSH: Medical History Adrenal mass Cystocele Anxiety Hypertension COPD (chronic obstructive pulmonary disease) History of lung cancer Type unknown, follows with Dr Cano in [place], on immunotherapy Surgical History History of hysterectomy Social History Smoking and tobacco/nicotine status: former use of tobacco/nicotine Lives independently: Yes Household members: none and other Details: family checks on her Vitals/I&O/Wt Last Vital Signs Temp 98.2 F 10/01/24 14:47 Pulse 86 10/01/24 14:47 Resp 15 10/01/24 14:47 BP 144/76 10/01/24 14:47 Pulse Ox 99 10/01/24 14:47 O2 Del Method Room Air 10/01/24 14:47 Weight last 48 hrs Weight 47.627 kg Physical Exam 2 Narrative: Patient is awake and alert Dehydrated No active pain No active distress Afebrile Hemodynamic stable Nonfocal neuroexam Daughter at the bedside GCS 15 S1, S2 Data 10/01/24 15:40 10/01/24 15:40 Micro: Microbiology 10/01/24 15:41 Blood Culture - Preliminary Blood SPECIMEN COLLECTED 10/01/24 15:40 Blood Culture - Preliminary Blood SPECIMEN COLLECTED A&P Assessment and plan (1) Adrenal mass: (2) Urinary tract infection: (3) History of lung cancer: (4) COPD (chronic obstructive pulmonary disease): Plan Positive blood cultures Patient is not septic Patient is afebrile, no significant leukocytosis No active symptoms of UTI Recently Cox catheter was removed Abnormal UA noted Blood culture positive for Klebsiella pansensitive She has received vancomycin meropenem in the ER I have reviewed her culture sensitive report through the online portal I will switch her to ceftriaxone 1 g daily She is also sensitive to oral antibiotics, We should obtain another blood cultures 48 hours after getting IV antibiotics, cultures taken in the ER today will obviously show positive cultures because she has not received any antibiotics She should get another blood culture at the time of discharge 48 hours after getting antibiotics and family is well aware of this fact now Regular diet DVT prophylaxis SCDs: She recently got blood transfusion on Tuesday Will give her another unit of blood hemoglobin is hovering around 7 History of lung cancer: Patient is stating that her chemo and immunosuppressant therapy has been put on hold secondary to chronic kidney disease and generalized weakness for now she is only taking mycophenolate 500 mg tablet 2 in the morning and 2 at nighttime Currently doing well, no fever, not requiring oxygen Full code Attestations 2 Medical Necessity Statement*: Anticipating discharge within 48 hours Diagnoses Adrenal mass E27.8 Urinary tract infection N39.0 History of lung cancer Z85.118 COPD (chronic obstructive pulmonary disease) J44.9
[2024-10-01 22:06] LABS: Glucose Point of Care 215 mg/dL (70-110)
[2024-10-01] MEDS: insulin glargine 100 units/1 mL 4 UNIT SUBCUT (22:10)
[2024-10-02] VITALS (24 sets, daily range): BP systolic 122–160; BP diastolic 55–83; PULSE 49–88; RESP 15–18; TEMP 36.4–36.9; O2SAT 95–100; BMI 17.6
[2024-10-02 03:34] LABS: Basophils % 0.4 %; Eosinophils # 0.1 10^3/uL (0.0-0.8); Eosinophils % 2.9 %; Lymphocytes # 0.8 10^3/uL (0.8-4.8); Lymphocytes % 28.5 %; Mean Corpuscular Hemoglobin 28.7 pg (27-33); Mean Corpuscular Volume 89.7 fl (85-98); Mean Platelet Volume 9.5 fL (7.4-10.4); Monocytes # 0.1 10^3/uL (0.2-0.9); Monocytes % 5.1 %; Neutrophils # 1.74 10^3/uL (1.8-7.7); Neutrophils % 62.7 %; Nucleated Red Blood Cells % 0 %; Platelet Count 161 10^3/cmm (157-399); Red Blood Count 2.23 10^6/uL (3.85-5.65); Red Cell Distribution Width 15.4 % (12.1-15.1); White Blood Count 2.77 10^3/uL (3.29-11.43)
[2024-10-02 03:57] LABS: Anion Gap 14.2 (5-19); Blood Urea Nitrogen 26 mg/dL (8-23); Calcium 8.1 mg/dL (8.5-10.5); Carbon Dioxide 20 mmol/L (22-29); Chloride 106 mmol/L (98-107); Creatinine Clr Calc Pharmacy 20.6547; Glucose 151 mg/dL (65-115); Magnesium 1.8 mg/dL (1.7-2.3); Osmolality Calculated 292 mOsm/kg (285-295); Potassium 3.2 mmol/L (3.5-5.1); Sodium 137 mmol/L (136-145)
[2024-10-02 07:44] LABS: Glucose Point of Care 90 mg/dL (70-110)
--- NOTE | 2024-10-02 08:46 | PC.PHAR ---
Pt does have her Mycophenolate 500mg in her walker compartment in case the hospital can't provide it.
[2024-10-02] MEDS: amlodipine 10 mg Tablet PO (09:07)
[2024-10-02] MEDS: tamsulosin 0.4 mg Capsule PO (09:07)
[2024-10-02] MEDS: cefTRIAXone 2,000 mg SDV 2000 MG IVP (09:07)
--- NOTE | 2024-10-02 09:25 | CTR_ITS ---
PROCEDURE INFORMATION: Exam: CT Abdomen And Pelvis Without Contrast Exam date and time: 10/02/2024 10:04 AM Age: 84 years old Clinical indication: Abdominal pain; Generalized; Prior surgery; Surgery date: 6+ months; Surgery type: Ureteral stent; Additional info: Baceremia, UTI, history of ureteral stent TECHNIQUE: Imaging protocol: Computed tomography of the abdomen and pelvis without contrast. Radiation optimization: All CT scans at this facility use at least one of these dose optimization techniques: automated exposure control; mA and/or kV adjustment per patient size (includes targeted exams where dose is matched to clinical indication); or iterative reconstruction. COMPARISON: CT abdomen pelvis wo con [id number] 04/19/2024 3:36 PM RADIATION DOSE METRICS: Total DLP (mGy-cm): 291.68 FINDINGS: Limitations: Evaluation of soft tissue structures is markedly limited by lack of oral and intravenous contrast and the patient's thin habitus. Lungs: 7 mm spiculated solid noncalcified nodule posteromedial right lung base is probably unchanged allowing for differences in the appearance of the lung bases. Again noted is bilateral bullous emphysema. Small amounts of scarring and/or subsegmental atelectasis in the lung bases appear decreased. Pleural spaces: Unchanged tiny bilateral pleural effusions. No pneumothorax. Liver: Unchanged 6 mm low-density lesion inferiorly in the liver is probably a cyst. However, it is too small to accurately characterize. Otherwise, unremarkable. Gallbladder and biliary ducts: Normal. No calcified stones. No ductal dilation. Pancreas: Normal. No ductal dilation. Spleen: Normal. No splenomegaly. Adrenal glands: A soft tissue left adrenal nodule measures 4.2 cm in AP dimension by 3.5 cm in transverse dimension by 6 cm in craniocaudal dimension. Previously it measured 3.8 cm by 2.2 cm by 3.2 cm respectively. Therefore, this is suspicious for malignancy. Grossly unremarkable left adrenal gland. Kidneys and ureters: Tiny nonobstructing right renal calculus. Tiny nonobstructing calculus mid left kidney. New left double-J ureteral stent is properly formed, and in satisfactory position. No calculus in the left ureter adjacent to the stent. Mild left hydronephrosis and hydroureter is decreased. There is, however, increased fat stranding around the left renal pelvis and left ureter with new gas in the left renal pelvis. There is new wall thickening of the left renal pelvis and left ureter. This suggests left urinary tract infection. Otherwise, unremarkable. Stomach and bowel: Unchanged moderate hiatal hernia size, but there may be increased diffuse wall thickening of the herniated stomach and adjacent stomach. Upper endoscopy is recommended to exclude gastric malignancy. Again noted are diverticula from the colon. There is no gross evidence of diverticulitis, but subtle diverticulitis may not be evident given the significant limitations of this examination. Bowel-gas pattern suggests adynamic ileus and/or diffuse gastroenteritis. No other obvious pathology, but subtle pathology may not be evident given the significant limitations of this examination. Appendix: No evidence of appendicitis. Intraperitoneal space: Unremarkable. No free air. No significant fluid collection. Vasculature: See Lymph nodes finding. Lymph nodes: Unchanged mild vinod hepatis, gastrohepatic ligament, and periceliac lymphadenopathy. No other obvious lymphadenopathy, but evaluation for such is markedly limited. Unchanged arterial calcification. Otherwise, grossly unremarkable noncontrast vasculature. Urinary bladder: Gas in the urinary bladder is probably due to instrumentation. The urinary bladder wall is not thickened, but the possibility of cystitis should be excluded. Otherwise, unremarkable urinary bladder. Reproductive: Unremarkable as visualized. Bones/joints: Unchanged mild scoliosis. Unchanged multilevel spondylosis. Unchanged right perineural cyst at the S3 level eroding bone posteriorly. Otherwise, unremarkable. Soft tissues: Increased moderate, diffuse body wall edema suggesting anasarca. Otherwise, unremarkable visualized body wall. Otherwise, unremarkable soft tissues. CT/CT kidney stone [id number] IMPRESSION: 1. New left double-J ureteral stent is properly formed, and in satisfactory position. No calculus in the left ureter adjacent to the stent. Mild left hydronephrosis and hydroureter is decreased. 2. There is, however, increased fat stranding around the left renal pelvis and left ureter with new gas in the left renal pelvis. There is new wall thickening of the left renal pelvis and left ureter. This suggests left urinary tract infection. 3. Gas in the urinary bladder is probably due to instrumentation. The urinary bladder wall is not thickened, but the possibility of cystitis should be excluded. 4. Unchanged mild vinod hepatis, gastrohepatic ligament, and periceliac lymphadenopathy. 5. Unchanged moderate hiatal hernia size, but there may be increased diffuse wall thickening of the herniated stomach and adjacent stomach. Upper endoscopy is recommended to exclude gastric malignancy. 6. A soft tissue left adrenal nodule measures 4.2 cm in AP dimension by 3.5 cm in transverse dimension by 6 cm in craniocaudal dimension. Previously it measured 3.8 cm by 2.2 cm by 3.2 cm respectively. Therefore, this is suspicious for malignancy. Consider needle biopsy of this for definitive diagnosis. 7. Unchanged 6 mm low-density lesion inferiorly in the liver is probably a cyst, but is too small to accurately characterize. Consider a follow-up CT in 6 months to ensure stability of this likely benign finding. 8. 7 mm spiculated solid noncalcified nodule right lung base is probably unchanged. For patients at low risk (minimal or absent history of smoking and of other known risk factors), recommend CT Chest at 6-12 months, then consider CT Chest at 18-24 months. For patients at high risk (history of smoking or of other known risk factors), recommend CT Chest at 6-12 months, then CT Chest at 18-24 months. (Reference: Codie). 9. Additional details as above. REFERENCES: Codie Mccormick, et al. Guidelines for Management of Incidental Pulmonary Nodules Detected on CT Images: From the Fleischner Society 2017. Radiology. 2017;284(1):228-243.
--- NOTE | 2024-10-02 09:27 | P.PN_ITS ---
Subjective 2 Subjective: History and physical reviewed. Patient is an 84-year-old, with history of small cell carcinoma of the lung that was recently in [facility]. She was diagnosed with UTI, and eventually discharged. Her Cox was removed 1 day prior to arrival here. She was called, and told she was bacteremic and needed to report to the ER. She came here, Rocephin was started for the Klebsiella that was noted in her blood cultures at the outside hospital. Klebsiella was pansensitive, and I reviewed the records personally. She reports she is feeling okay currently. Medications: Reviewed: Yes Vitals/I&O/Wt Last Vital Signs Temp 97.9 F 10/02/24 07:38 Pulse 52 L 10/02/24 07:57 Resp 18 10/02/24 07:57 BP 160/71 10/02/24 07:57 Pulse Ox 99 10/02/24 07:57 O2 Del Method Room Air 10/02/24 07:38 10/01/24 10/02/24 10/02/24 22:59 06:59 14:59 Intake Total 50 / 50 223 / 273 87 / 87 Balance 50 / 50 223 / 273 87 / 87 Weight last 48 hrs Weight 47.627 kg Physical Exam 2 Narrative: General Exam no distress Neck is supple Cardiovascular regular rate and rhythm Lungs clear Abdomen is soft Extremities no cyanosis clubbing Data 10/02/24 03:24 10/02/24 03:24 Micro: Microbiology 10/01/24 15:41 Blood Culture - Preliminary Blood SPECIMEN COLLECTED 10/01/24 15:40 Blood Culture - Preliminary Blood SPECIMEN COLLECTED A&P Assessment and plan (1) Bacteremia: Repeat cultures drawn here Continue Rocephin If sensitive to ramses quinolones here as well if positive culture, consider discharge home on oral medication Await urine and blood cultures Source urinary CT renal protocol to make sure no obstruction exists Bladder scan as needed (2) Urinary tract infection: Recent urinary infection with clearance of CLL Continue Rocephin Await culture here (3) Urinary obstruction: Check CT renal protocol. Past history of urinary stenting, and recent Cox (4) Renal failure: Patient with recent hospitalization for renal failure Creatinine appears improved here from there at 1.6 Continue to follow with daily lab (5) Anemia: Patient with significant anemia Transfused 1 unit 10/02 Repeat hemoglobin now She has had some hematuria with her infection, and we will need to monitor that here as well. (6) COPD (chronic obstructive pulmonary disease): Patient with history of COPD DuoNeb as needed Plan Other medical problems as outlined in past medical history Full code SCDs for DVT prophylaxis, no pharmacologic secondary to significant anemia Attestations 2 Medical Necessity Statement*: Will need continued hospitalization for bacteremia requiring IV antibiotics Diagnoses Bacteremia R78.81 Urinary tract infection N39.0 Urinary obstruction N13.9 Renal failure N19 Anemia D64.9 COPD (chronic obstructive pulmonary disease) J44.9 Time Spent (min) 24
[2024-10-02] MEDS: pantoprazole 40 mg SDV IVP ×2 (10:26→20:38)
[2024-10-02 13:13] LABS: Glucose Point of Care 165 mg/dL (70-110)
[2024-10-02 16:08] LABS: Hematocrit 25.3 % (36-47)
[2024-10-02 16:47] LABS: Glucose Point of Care 192 mg/dL (70-110)
[2024-10-02 18:47] LABS: Vancomycin Trough 8.7 ug/mL (10-15)
[2024-10-02 20:34] LABS: Glucose Point of Care 216 mg/dL (70-110)
[2024-10-02] MEDS: LORazepam 0.5 mg Tablet PO (20:35)
[2024-10-03] VITALS (12 sets, daily range): BP systolic 120–156; BP diastolic 47–90; PULSE 60–104; RESP 16–20; TEMP 36.4–36.8; O2SAT 97–100
[2024-10-03 06:04] LABS: Basophils % 0.6 %; Eosinophils # 0.2 10^3/uL (0.0-0.8); Eosinophils % 5.7 %; Hematocrit 22.9 % (36-47); Lymphocytes # 0.8 10^3/uL (0.8-4.8); Lymphocytes % 23.8 %; Mean Corpuscular HGB Conc 32.3 g/dL (30-55); Mean Corpuscular Hemoglobin 28.2 pg (27-33); Mean Corpuscular Volume 87.4 fl (85-98); Monocytes # 0.2 10^3/uL (0.2-0.9); Monocytes % 5.7 %; Neutrophils # 2.01 10^3/uL (1.8-7.7); Neutrophils % 63.9 %; Nucleated Red Blood Cells % 0 %; Platelet Count 172 10^3/cmm (157-399); Red Blood Count 2.62 10^6/uL (3.85-5.65); White Blood Count 3.15 10^3/uL (3.29-11.43)
[2024-10-03 06:35] LABS: Glucose Point of Care 104 mg/dL (70-110)
[2024-10-03 06:37] LABS: Alanine Aminotransferase 126 U/L (0-33); Albumin Level 2.9 g/dL (3.5-5.2); Alkaline Phosphatase 91 U/L (35-105); Anion Gap 13.1 (5-19); Aspartate Amino Transferase 78 U/L (0-32); Blood Urea Nitrogen 22 mg/dL (8-23); Calcium 8.4 mg/dL (8.5-10.5); Carbon Dioxide 21 mmol/L (22-29); Chloride 109 mmol/L (98-107); Creatinine Clr Calc Pharmacy 26.6713; Globulin 2.7 g/dL (1.3-4.6); Glucose 95 mg/dL (65-115); Magnesium 1.8 mg/dL (1.7-2.3); Osmolality Calculated 293 mOsm/kg (285-295); Potassium 3.1 mmol/L (3.5-5.1); Sodium 140 mmol/L (136-145); Total Bilirubin 0.4 mg/dL (0.15-1.2); Total Protein 5.6 g/dL (6.6-8.7)
[2024-10-03] MEDS: pantoprazole 40 mg SDV IVP (08:05)
[2024-10-03] MEDS: amlodipine 10 mg Tablet PO (08:06)
[2024-10-03] MEDS: tamsulosin 0.4 mg Capsule PO (08:07)
[2024-10-03] MEDS: cefTRIAXone 2,000 mg SDV 2000 MG IVP (08:07)
[2024-10-03] MEDS: potassium chloride oral liq 20 mEq/15 mL UDC 40 MEQ PO (08:16)
--- NOTE | 2024-10-03 09:31 | PC.CHAP ---
Pastoral Care Encounter/Spiritual Assessment Type of Contact [] Declined director of compliance visit [] Patient/Family/Request visit [] Outpatient visit [] Follow-up visit [] Physician referral [] Code/Alert [x] Routine visit [] Staff referral [] Actively dying [] Patient sleeping [] Family support [] [] Out of room [] Palliative care [] [] Receiving care in room [] Pre-surgical visit [] Trauma [] Long length of stay [] ICU visit [] Other: Relational/Emotional Strength [x] Patient feels connected with others/family/visitors/staff [] Distress [] Loneliness/isolation [] Abandonment Spirituality of Patient [x] Person of Juli [] Attends Jewish of their Juli [x] Believes in Prayer [] Reads Bible or Pentecostalism materials [] There are Spiritual issues to be addressed Refrigerating Engineer Interventions x[] Prayer [] Active listening [x] Non-anxious presence [x] Spiritual/emotional support [] Crisis/trauma care [] Spiritual counseling [] Bereavement support [] Provided bereavement packet [] Provided Bible/devotional materials [] Provided toy/stuffed animal, coloring book to patient or family member [] Provided Communion [] Anointing/Kent [] Salvation [x] Completed spiritual assessment [] Other: Impact on Illness or Injury [] Angry [] Fearful [] Anxious [] Often cries [] Exhaustion [] Unable to work [] Unable to attend yazidism [] Unable to walk/stand [] Unable to read [] Unable to drive [] Unable to eat/drink [] Unable to sleep [] Unable to be with family [] Patient intubated [] Other: Summary Time spent with patient 5 min
[2024-10-03] MEDS: sodium chloride 0.9% (100 ml) 100 ML 125 ML (10:46)
[2024-10-03 11:37] LABS: Glucose Point of Care 174 mg/dL (70-110)
[2024-10-03] MEDS: insulin lispro 100 unit/1 mL SUBCUT (11:45)
--- NOTE | 2024-10-03 13:18 | P.DS_ITS ---
Discharge Providers Date of Admission: 10/02/24 15:17 Date of Discharge: October 03, 2024 Attending Provider at Admission: Jose Luis Griffith MD Attending Provider at Discharge: Blake Olvera MD Diagnoses at Discharge Discharge Diagnosis (1) Bacteremia: Status: Acute (2) Urinary tract infection: Status: Acute (3) Urinary obstruction: Status: Acute (4) Renal failure: Status: Acute (5) Anemia: Status: Acute (6) COPD (chronic obstructive pulmonary disease): Status: Chronic Reason for Visit Reason for Visit: reffered by dony, lung cancer, bad infection Hospital Course Hospital Course Ai is an 84-year-old white female with history of lung cancer followed at [facility] as well as renal failure, previous ureteral stenting, who was directed to the ER secondary to a positive blood culture with Klebsiella that was detected after she was discharged from the hospital. She arrived to the emergency department, and was really asymptomatic at that time. She had recently had her Cox removed. Her hemoglobin was 7.2, but it was in the mid 7 range on discharge of the hospital in [place] as well. Secondary to her acute illness, and a little bit of weakness associated with that she was transfused 1 unit of packed red blood cells. Sensitivity profile of the Klebsiella was reviewed and it was relatively pansensitive, being sensitive to this third-generation cephalosporins as well as fluoroquinolones. She was placed on Rocephin 2 g IV and a urine and blood culture were obtained. Recent previous urine culture also showed Klebsiella, which was pansensitive. During her hospital stay cultures remain negative. She did receive 1 more unit of blood secondary to low hemoglobin, but had no evidence of active bleeding. She had no fevers. With her sensitivity profile, showing good sensitivity to Cipro at [facility] and negative blood cultures here she will be discharged on ciprofloxacin 500 mg twice daily for 14 days. She was encouraged to follow-up with her urologist, and I communicated all of this to her daughter as well. She is to monitor for any severe diarrhea a ssociated with antibiotic, or any fever and return if this occurs. She and her daughter acknowledged instructions, and agreed with the plan. Repeat urine culture had taken some time to set up and was actually pending on discharge, growing gram-negative rods. Should this sensitivity profile change, it will be addressed. Physical Exam Narrative: General Exam no distress Neck is supple Cardiovascular regular rate and rhythm Lungs clear Abdomen soft Extremities no cyanosis clubbing edema Discharge Data Studies Completed and Pending Completed Studies During Hospitalization Category Date Time Status CT abdomen renal stone [CT kidney stone [id number]] Routine Cat Scan 10/02/24 09:25 Completed XR chest 1V portable [id number] Stat Exams 10/01/24 14:46 Completed Pending at discharge Category Date Time Status Blood Culture Stat Lab 10/01/24 15:41 Results Urine Culture Stat Lab 10/01/24 15:45 Results Radiology Impressions Chest X-Ray 10/01/24 14:46 IMPRESSION: 1. Pulmonary hyperinflation. No acute process. Abdomen/Pelvis CT 10/02/24 09:25 IMPRESSION: 1. New left double-J ureteral stent is properly formed, and in satisfactory position. No calculus in the left ureter adjacent to the stent. Mild left hydronephrosis and hydroureter is decreased. 2. There is, however, increased fat stranding around the left renal pelvis and left ureter with new gas in the left renal pelvis. There is new wall thickening of the left renal pelvis and left ureter. This suggests left urinary tract infection. 3. Gas in the urinary bladder is probably due to instrumentation. The urinary bladder wall is not thickened, but the possibility of cystitis should be excluded. 4. Unchanged mild vinod hepatis, gastrohepatic ligament, and periceliac lymphadenopathy. 5. Unchanged moderate hiatal hernia size, but there may be increased diffuse wall thickening of the herniated stomach and adjacent stomach. Upper endoscopy is recommended to exclude gastric malignancy. 6. A soft tissue left adrenal nodule measures 4.2 cm in AP dimension by 3.5 cm in transverse dimension by 6 cm in craniocaudal dimension. Previously it measured 3.8 cm by 2.2 cm by 3.2 cm respectively. Therefore, this is suspicious for malignancy. Consider needle biopsy of this for definitive diagnosis. 7. Unchanged 6 mm low-density lesion inferiorly in the liver is probably a cyst, but is too small to accurately characterize. Consider a follow-up CT in 6 months to ensure stability of this likely benign finding. 8. 7 mm spiculated solid noncalcified nodule right lung base is probably unchanged. For patients at low risk (minimal or absent history of smoking and of other known risk factors), recommend CT Chest at 6-12 months, then consider CT Chest at 18-24 months. For patients at high risk (history of smoking or of other known risk factors), recommend CT Chest at 6-12 months, then [address] Chest at 18-24 months. (Reference: Codie). 9. Additional details as above. REFERENCES: Codie Mccormick, et al. Guidelines for Management of Incidental Pulmonary Nodules Detected on CT Images: From the Fleischner Society 2017. Radiology. 2017;284(1):228-243. Laboratory Results WBC 3.15 10^3/uL (3.29-11.43) L 10/03/24 05:11 RBC 2.62 10^6/uL (3.85-5.65) L 10/03/24 05:11 Hgb 7.40 g/dL (11.27-16.99) L 10/03/24 05:11 Hct 22.9 % (36-47) L 10/03/24 05:11 MCV 87.4 fl (85-98) 10/03/24 05:11 MCH 28.2 pg (27-33) 10/03/24 05:11 MCHC 32.3 g/dL (30-55) 10/03/24 05:11 RDW 15.0 % (12.1-15.1) 10/03/24 05:11 Plt Count 172 10^3/cmm (157-399) 10/03/24 05:11 MPV 10.0 fL (7.4-10.4) 10/03/24 05:11 Neut % (Auto) 63.9 % 10/03/24 05:11 Lymph % (Auto) 23.8 % 10/03/24 05:11 Rhea % (Auto) 5.7 % 10/03/24 05:11 Eos % (Auto) 5.7 % 10/03/24 05:11 Baso % (Auto) 0.6 % 10/03/24 05:11 Neut # (Auto) 2.01 10^3/uL (1.8-7.7) 10/03/24 05:11 Lymph # (Auto) 0.8 10^3/uL (0.8-4.8) 10/03/24 05:11 Rhea # (Auto) 0.2 10^3/uL (0.2-0.9) 10/03/24 05:11 Eos # (Auto) 0.2 10^3/uL (0.0-0.8) 10/03/24 05:11 Baso # (Auto) 0.0 10^3/uL (0.0-0.1) 10/03/24 05:11 Nucleated RBC % (auto) 0 % 10/03/24 05:11 Nucleated RBCs # 0.0 /100WBC 10/03/24 05:11 Sodium 140 mmol/L (136-145) 10/03/24 05:11 Potassium 3.1 mmol/L (3.5-5.1) L 10/03/24 05:11 Chloride 109 mmol/L (98-107) H 10/03/24 05:11 Carbon Dioxide 21 mmol/L (22-29) L 10/03/24 05:11 Anion Gap 13.1 (5-19) 10/03/24 05:11 BUN 22 mg/dL (8-23) 10/03/24 05:11 Creatinine 1.3 mg/dL (0.5-0.9) H 10/03/24 05:11 GFR Calculation Not Reportable 10/03/24 05:11 Glucose 95 mg/dL (65-115) 10/03/24 05:11 POC Glucose 174 mg/dL (70-110) H 10/03/24 11:29 Calculated Osmolality 293 mOsm/kg (285-295) 10/03/24 05:11 Lactic Acid 1.2 mmol/L (0.5-2.2) 10/01/24 15:40 Calcium 8.4 mg/dL (8.5-10.5) L 10/03/24 05:11 Magnesium 1.8 mg/dL (1.7-2.3) 10/03/24 05:11 Total Bilirubin 0.4 mg/dL (0.15-1.2) 10/03/24 05:11 AST 78 U/L (0-32) H 10/03/24 05:11 ALT 126 U/L (0-33) H 10/03/24 05:11 Alkaline Phosphatase 91 U/L (35-105) 10/03/24 05:11 C-Reactive Protein 15.0 mg/L (0.0-4.9) H 10/02/24 03:24 Total Protein 5.6 g/dL (6.6-8.7) L 10/03/24 05:11 Albumin 2.9 g/dL (3.5-5.2) L 10/03/24 05:11 Globulin 2.7 g/dL (1.3-4.6) 10/03/24 05:11 Procalcitonin 0.24 ng/mL (0-0.5) 10/01/24 15:40 Urine Color Yellow (Yellow) 10/01/24 15:45 Urine Appearance Turbid (CLEAR) A 10/01/24 15:45 Urine pH 6.0 (5-7) 10/01/24 15:45 Ur Specific [place] 1.017 (1.005-1.030) 10/01/24 15:45 Urine Protein 2+ (Negative) A 10/01/24 15:45 Urine Glucose (UA) Negative (Normal) 10/01/24 15:45 Urine Ketones Negative (Negative) 10/01/24 15:45 Urine Blood 3+ (Negative) A 10/01/24 15:45 Urine Nitrate Negative (Negative) 10/01/24 15:45 Urine Bilirubin Negative (Negative) 10/01/24 15:45 Urine Urobilinogen 1.0 mg/dL (Negative) 10/01/24 15:45 Ur Leukocyte Esterase 3+ (Negative) A 10/01/24 15:45 Urine RBC 25-40 /hpf (0-2) H 10/01/24 15:45 Urine WBC Too numerous to cnt /hpf (0-5) H 10/01/24 15:45 Ur Squamous Epith Cells 5-10 /hpf (0-5) H 10/01/24 15:45 Amorphous Sediment Not Reportable 10/01/24 15:45 Urine Bacteria 4+ /hpf (NONE) H 10/01/24 15:45 Urine Mucus Trace /hpf 10/01/24 15:45 Vancomycin Trough 8.7 ug/mL (10-15) L 10/02/24 18:00 Blood Type O Positive 10/02/24 03:43 Rho(D) Type Rh positive 10/02/24 03:43 Antibody Screen Negative 10/02/24 03:43 Crossmatch See Detail 10/02/24 03:43 Vitals Last Vital Signs Temp 98.1 F 10/03/24 11:48 Pulse 64 10/03/24 11:48 Resp 17 10/03/24 11:48 BP 128/61 10/03/24 11:48 Pulse Ox 99 10/03/24 11:48 O2 Del Method Room Air 10/03/24 11:41 Discharge Plan Discharge Patient Disposition: Home Condition: Stable Prescriptions: New pantoprazole [Protonix] 40 mg tablet,delayed release (DR/EC) 40 mg PO DAILY Qty: 30 0RF ciprofloxacin HCl [Cipro] 500 mg tablet 500 mg PO Q12H 14 Days Qty: 28 0RF Continued lorazepam 0.5 mg tablet 0.5 mg PO BID PRN (Reason: SEVERE AGITATION) albuterol sulfate 90 mcg/actuation HFA aerosol inhaler 2 puff INHALATION QID PRN (Reason: Wheezing) tamsulosin 0.4 mg Capsule 0.4 mg PO DAILY Qty: 30 0RF multivitamin Tablet 1 tab PO DAILY cetirizine 10 mg Tablet 10 mg PO DAILY PRN (Reason: allergies) loperamide [Imodium A-D] 2 mg Tablet 2 mg PO Q4H PRN (Reason: Diarrhea) Rx Instructions: administer after each loose stool until symptoms controlled; do not exceed 8 mg per 24 hrs mycophenolate mofetil 500 mg tablet 1,000 mg PO BID ascorbic acid (vitamin C) [Vitamin C] 500 mg Tablet 250 mg PO DAILY Januvia 25 mg tablet 25 mg PO DAILY Discharge Orders: Discharge Order (Routine); Ordered 10/03/24 Ordered By: Blake Olvera Discharge Diet: Usual diet Discharge Activity: Increase activity as tolerated Patient Instructions: Opioid Safety Activity Restrictions/Additional Instructions: Take all medicine as prescribed Follow-up with your primary care provider in 3 to 5 days with a CBC Consider further workup of anemia with your primary care provider or your oncologist Follow-up with oncology, and discussed with them when to restart CellCept. Please take Cipro 500 mg twice daily for 14 days. Monitor for any diarrhea following stop of antibiotic. If this is severe continues please notify your primary care provider. Return for any fever. Nursing to please use meds to beds. Discharge Attestations Time Spent in Discharge Care*: greater than 30 min Status at Discharge: Cognitive status at discharge: cognitively intact , Behavioral status at discharge: cooperative , Quality Metrics Clinical Quality Measures [ No reported AMI, CVA or VTE this stay] Coding Level of Care Code 26109 Total time (in minutes) for Discharge: 24 Diagnoses Bacteremia R78.81 Urinary tract infection N39.0 Urinary obstruction N13.9 Renal failure N19 Anemia D64.9 COPD (chronic obstructive pulmonary disease) J44.9
[2024-10-03 16:16] LABS: Glucose Point of Care 183 mg/dL (70-110)
--- NOTE | 2024-10-03 16:31 | PC.NURSE ---
Discussed discharge with patient. Discussed follow up visits, to follow up with Oncologist, have a CBC before next appointment, new medications and continue all home medications. Removed chest port access. Patient verbalized understanding. Medications at bedside before discharged.
--- NOTE | 2024-10-03 16:34 | PC.NURSE ---
Patient waiting for daughter to come to [facility] pickup patient.
== END 2024-10-03 17:00 | disposition home or self-care (01) | DRG 690 ==
LOC: ER 22:24 → ER IP 10-02 06:35 → MEDSURG 10-02 11:24
PROVIDERS: Emergency Medicine; Admitting Provider Internal Medicine; Emergency Provider Family Medicine; Visit Provider Internal Medicine
DX: N39.0 Urinary tract infection, site not specified (principal); R78.81 Bacteremia; C34.90 Malignant neoplasm of unspecified part of unspecified bronchus or lung; N13.9 Obstructive and reflux uropathy, unspecified; N19 Unspecified kidney failure; D64.9 Anemia, unspecified; J44.9 Chronic obstructive pulmonary disease, unspecified; E27.8 Other specified disorders of adrenal gland; I10 Essential (primary) hypertension; F41.9 Anxiety disorder, unspecified; Z96.0 Presence of urogenital implants; Z87.891 Personal history of nicotine dependence
CPT/HCPCS: 36415; 36416; 36430; 36591; 51798; 71045; 74176; 80048; 80053; 80202; 81001; 82962; 83605; 83735; 84145; 85014; 85018; 85025; 86140; 86850; 86900; 86920; 87040; 87077; 87086; 87186; 96365; 96367; 96372; 96375; 99285; G0378; J0696; J1644; J1815; J2185; J2470; J3370; J7050; J7517; P9040